=== PATIENT | female | born 1980 | race Two or more races ===

== ENCOUNTER 2020-05-14 08:38 | Outpatient (REF) | payer OTHER, MEDICAID, SELFPAY ==
--- NOTE | 2020-05-14 | MM_ITS ---
EXAMINATION: MM SCREENING DIGITAL BREAST TOMOSYNTHESIS, BILATERAL CLINICAL INFORMATION: Screening. Asymptomatic. Prior history right excisional biopsy 09/09/2012 (intraductal papilloma). Family history breast cancer paternal aunt, age 35. The lifetime risk of breast cancer based on the Tyrer-Cuzick Model is 16%. COMPARISON: Mammography: 09/23/2015, 07/12/2012 TECHNIQUE: Digital breast tomosynthesis is performed in both the craniocaudal and mediolateral oblique views along with computer-aided detection (CAD). Synthesized 2D images are generated from the tomosynthesis. FINDINGS: There are scattered areas of fibroglandular density (ACR BI-RADS breast composition Category b). There are new grouped calcifications left breast anterior/mid upper outer quadrant. Patient will be recalled for additional imaging. No abnormal calcifications on the right. The remainder of the breasts show no significant mass or architectural abnormality. The axilla and skin contours are unremarkable. MM/MM tomosynthesis screening BI IMPRESSION: 1. Left: New grouped calcifications anterior/mid upper outer left breast. 2. Right: No mammographic evidence of malignancy. ASSESSMENT: BI-RADS 0: Incomplete - Need Additional Imaging Evaluation RECOMMENDATION: 1. Additional views of the left breast (magnification CC, magnification ML). 2. Radiology department staff will contact the patient for additional imaging. This patient's information was entered into a reminder system with a target due date for their next mammogram.
== END 2020-05-14 08:39 | disposition home or self-care (01) ==
LOC: HO.MAMMO 08:38
PROVIDERS: PCP Internal Medicine; Visit Provider Internal Medicine
DX: Z12.31 Encounter for screening mammogram for malignant neoplasm of breast (principal)
CPT/HCPCS: 77063; 77067

== ENCOUNTER 2020-05-20 10:16 | Outpatient (REF) | payer OTHER, MEDICAID, SELFPAY ==
--- NOTE | 2020-05-20 | MM_ITS ---
EXAMINATION: MM DIAGNOSTIC DIGITAL MAMMOGRAPHY, LEFT CLINICAL INFORMATION: 39-year-old with new grouped calcifications anterior upper outer left breast. Prior history right excisional biopsy 2013 (intraductal papilloma). TC score is 16%. COMPARISON: Mammography: 05/14/2020, 09/23/2015 TECHNIQUE: Digital mammography is performed in the following views: Magnification CC, magnification ML x2 FINDINGS: There are scattered areas of fibroglandular density (ACR BI-RADS breast composition Category b). The magnification views confirm 8-12 new tightly grouped calcifications anterior upper left breast which vary in size and slightly vary in shape. Stereotactic sampling is recommended. Results are discussed with the patient at time of visit. MM/MM added views LT IMPRESSION: New tightly grouped calcifications upper outer quadrant left breast. ASSESSMENT: BI-RADS 4: Suspicious (subcategory 4A: Low suspicion for malignancy) RECOMMENDATION: Stereotactic sampling left breast calcifications. This patient's information was entered into a reminder system with a target due date for their next mammogram.
== END 2020-05-20 10:17 | disposition home or self-care (01) ==
LOC: HO.MAMMO 10:16
PROVIDERS: Visit Provider Internal Medicine
DX: R92.1 Mammographic calcification found on diagnostic imaging of breast (principal)
CPT/HCPCS: 77065

== ENCOUNTER → 2020-06-01 14:15 | Outpatient (BNVA) | payer OTHER, MEDICAID, SELFPAY | PROVIDERS: PCP Internal Medicine; Visit Provider Surgery | DX: Z76.89 Persons encountering health services in other specified circumstances (principal) ==

== ENCOUNTER 2020-06-02 08:02 | Outpatient (REF) | payer OTHER, MEDICAID, SELFPAY ==
--- NOTE | 2020-06-02 08:05 | MM_ITS ---
EXAMINATION: STEREOTACTIC TOMOSYNTHESIS-GUIDED VACUUM-ASSISTED BREAST BIOPSY, LEFT SPECIMEN RADIOGRAPH, LEFT POST PROCEDURE DIGITAL MAMMOGRAM, LEFT CLINICAL INFORMATION: New grouped calcifications upper outer left breast for sampling. Prior history contralateral right intraductal papilloma, status post excision 09/09/2012. Family history breast cancer paternal aunt, age 35. COMPARISON: 05/20/2020, 05/14/2020, 09/23/2015. TECHNIQUE/PROCEDURE: Informed consent was obtained from the patient after discussion of the benefits, risks, and alternatives to biopsy today. Patient appeared to understand. Gave opportunity for questions. Patient signed consent form. BIOPSY TABLE: [employer] Affirm Prone Biopsy System. LESION: Grouped calcifications anterior upper outer quadrant. LOCAL ANESTHESIA: 8 mL 1% lidocaine; 10 mL 1% lidocaine with epinephrine. DERMATOTOMY: Single skin masha dermatotomy performed. NEEDLE: [employer] 9-gauge vacuum assisted core biopsy device. APPROACH: lateral medial. TARGETING: Digital breast tomosynthesis used for targeting. CORES: 6. CLIP: [employer] Cylinder-shaped marker. SPECIMEN RADIOGRAPH: Specimen radiograph is taken in separate room using digital mammography. The index calcifications are in the excised cores. There are over 10 calcifications seen in the cores. POST PROCEDURE UNILATERAL DIGITAL MAMMOGRAM: The post biopsy mammogram is performed in separate room using separate digital mammography equipment from the biopsy procedure. CC and ML views are obtained. There are scattered areas of fibroglandular density (breast composition category: b). The clip marker is in position. The calcifications are no longer clearly seen posterior sampling. No gross hematoma. The patient tolerated the procedure well. No immediate complications. Home instructions reviewed with the patient. Final pathology results are pending. MM/MM stereotactic biopsy LT IMPRESSION: 1. Digital tomosynthesis-guided core biopsy left breast with clip placement. 2. Specimen radiograph taken and post procedure mammogram. There is satisfactory positioning of the biopsy clip. 3. Final pathology results pending. An addendum report will be issued.
== END 2020-06-02 08:03 | disposition home or self-care (01) ==
LOC: HO.MAMMO 08:02
PROVIDERS: PCP Internal Medicine; Visit Provider Surgery
DX: R92.0 Mammographic microcalcification found on diagnostic imaging of breast (principal)
CPT/HCPCS: 19081; 88305; A4648

== ENCOUNTER → 2020-06-08 14:41 | Outpatient (BNVA) | payer OTHER, MEDICAID, SELFPAY | PROVIDERS: PCP Internal Medicine; Referring Provider Internal Medicine; Visit Provider Surgery | DX: Z76.89 Persons encountering health services in other specified circumstances (principal) ==

== ENCOUNTER 2020-06-30 14:43 | Outpatient (REF) | payer OTHER, MEDICAID, SELFPAY ==
--- NOTE | 2020-06-30 14:46 | MR_ITS ---
EXAMINATION: MR BREAST WITHOUT AND WITH CONTRAST, BILATERAL CLINICAL INFORMATION: 40-year-old for high-risk screening. Nipple discharge bilaterally. History of bilateral papilloma. COMPARISON: MRI of 06/24/2012 and correlation to mammogram of 05/14/2020 TECHNIQUE: Imaging was performed with a dedicated breast coil. Prior to the administration of contrast, bilateral axial T1 and bilateral axial T2 weighted sequences were obtained. After the uneventful administration of?10 mL of Gadavist, dynamic contrast-enhanced VIBRANT series through the breasts in the axial plane were performed. Subtracted images were performed and reviewed. A delayed sagittal sequence through both breasts was acquired. Additionally, CAD post-processing, including maximum intensity projections, 3-D reconstructions and kinetic analysis, were performed an independent workstation and reviewed by the interpreting radiologist is a portion of this exam. FINDINGS: The patient's fibroglandular tissue demonstrates scattered enhancement. There is moderate background enhancement. LEFT BREAST: There are multiple foci of enhancement too numerous to count throughout the breast parenchyma. These demonstrate subthreshold and progressive-type kinetics. There is an enhancing mass in the 12 o'clock position 11.6 cm from the nipple, measuring 0.6 cm. This demonstrates plateau-type kinetics and is more pronounced than any of the other foci within the breast. It is, therefore, considered suspicious. (Axial subtracted image 37/126). There are no other areas of mass or non-mass enhancement suspicious of malignancy. There are no secondary signs of malignancy. There is no ductal enhancement. There are no additional findings on T2-weighted imaging or kinetic curve analysis. RIGHT BREAST: Similar to the contralateral breast, there are multiple foci of enhancement too numerous to count throughout the breast parenchyma. There is an oval enhancing mass measuring 0.5 cm in the retroareolar, 1 o'clock which demonstrates plateau-type kinetics. In light of the patient's history, this may represent a papilloma. (Axial subtracted image 63/126). There are no other areas of mass or non-mass enhancement suspicious of malignancy. There are no secondary signs of malignancy. There is no ductal enhancement. There are no additional findings on T2-weighted imaging or kinetic curve analysis. There is no suspicious internal mammary chain or axillary adenopathy. Limited views of the chest and abdomen are unremarkable. MR/MR breast BI wo/w con IMPRESSION: 1. Left breast with 0.6 cm enhancing mass 12 o'clock 11.6 cm from the nipple, which is suspicious. 2. Right breast mass in the retroareolar, 1 o'clock position measuring 0.5 cm which is suspicious. 3. Multiple bilateral enhancing foci too numerous to count which limits the overall sensitivity of this examination. ASSESSMENT: LEFT BREAST: BI-RADS 4: Suspicious. RIGHT BREAST: BI-RADS 4: Suspicious. RECOMMENDATIONS: 1. Focused ultrasound for the enhancing mass in the left breast at 12:00. If there is no concordant finding then an MRI guided biopsy is recommended.. 2. Focused ultrasound for the mass in the right breast retroareolar position. Ultrasound-guided biopsy should then be performed. This finding, due to its position, may not be amenable to MRI-guided biopsy. The findings were discussed with Dr. Senia Becerril at 11:55 AM on 07/01/2020
== END 2020-06-30 14:44 | disposition home or self-care (01) ==
LOC: HO.MRI 14:43
PROVIDERS: Visit Provider Surgery
DX: N64.52 Nipple discharge (principal); Z86.018 Personal history of other benign neoplasm
CPT/HCPCS: 77049; A9585

== ENCOUNTER → 2020-07-06 08:53 | Outpatient (BNVA) | payer OTHER, MEDICAID, SELFPAY | PROVIDERS: PCP Internal Medicine; Visit Provider Surgery | DX: Z76.89 Persons encountering health services in other specified circumstances (principal) ==

== ENCOUNTER 2020-07-09 07:51 | Outpatient (REF) | payer OTHER, MEDICAID, SELFPAY ==
--- NOTE | 2020-07-09 07:54 | US_ITS ---
EXAMINATION: US DIAGNOSTIC ULTRASOUND BREAST, BILATERAL CLINICAL INFORMATION: Bilateral second look ultrasound from high risk screening breast MRI 06/30/2020 noting enhancement 12:00 left breast and anterior upper right breast. Persistent right nipple discharge. History focus papilloma on left breast stereotactic biopsy 06/02/2020 (under 1 mm, completely excised). COMPARISON: MRI breasts 06/30/2020, digital breast tomosynthesis 05/14/2020, stereotactic biopsy 06/02/2020. TECHNIQUE: Ultrasound of the left breast is targeted to the area of MR concern upper breast approximately 12 cm from nipple. Ultrasound the right breast is targeted to the area of MR concern anterior superior periareolar breast. Grayscale imaging and color Doppler are performed without and with harmonics. FINDINGS: Right: There is no focal suspicious finding. There is no ultrasound correlate for the finding on MRI. Left: There is no focal suspicious finding. There is no ultrasound correlate for the finding on MRI. Results are discussed with the patient at time of visit. Result called to esthetician and manager medical spa ([facility]y) for Dr. Becerril on 07/09/2020. US/US breast RT limited IMPRESSION: Unremarkable bilateral targeted ultrasound. No ultrasound correlate for the left and right breast findings on recent MRI. ASSESSMENT: BI-RADS 1: Negative RECOMMENDATION: 1. MR report suggests bilateral tissue sampling. As there is no correlate on second look ultrasound, sampling would need to be performed under MR guidance. If MR biopsy is not contemplated, then followup MR in 6-12 months would be suggested. 2. Annual bilateral digital breast tomosynthesis. This patient's information was entered into a reminder system with a target due date for their next mammogram.
--- NOTE | 2020-07-09 07:54 | US_ITS ---
EXAMINATION: US DIAGNOSTIC ULTRASOUND BREAST, BILATERAL CLINICAL INFORMATION: Bilateral second look ultrasound from high risk screening breast MRI 06/30/2020 noting enhancement 12:00 left breast and anterior upper right breast. Persistent right nipple discharge. History focus papilloma on left breast stereotactic biopsy 06/02/2020 (under 1 mm, completely excised). COMPARISON: MRI breasts 06/30/2020, digital breast tomosynthesis 05/14/2020, stereotactic biopsy 06/02/2020. TECHNIQUE: Ultrasound of the left breast is targeted to the area of MR concern upper breast approximately 12 cm from nipple. Ultrasound the right breast is targeted to the area of MR concern anterior superior periareolar breast. Grayscale imaging and color Doppler are performed without and with harmonics. FINDINGS: Right: There is no focal suspicious finding. There is no ultrasound correlate for the finding on MRI. Left: There is no focal suspicious finding. There is no ultrasound correlate for the finding on MRI. Results are discussed with the patient at time of visit. Result called to infertility medical assistant (Carey) for Dr. Becerril on 07/09/2020. US/US breast LT limited IMPRESSION: Unremarkable bilateral targeted ultrasound. No ultrasound correlate for the left and right breast findings on recent MRI. ASSESSMENT: BI-RADS 1: Negative RECOMMENDATION: 1. MR report suggests bilateral tissue sampling. As there is no correlate on second look ultrasound, sampling would need to be performed under MR guidance. If MR biopsy is not contemplated, then followup MR in 6-12 months would be suggested. 2. Annual bilateral digital breast tomosynthesis. This patient's information was entered into a reminder system with a target due date for their next mammogram.
== END 2020-07-09 07:52 | disposition home or self-care (01) ==
LOC: HO.MAMMO 07:51
PROVIDERS: Visit Provider Surgery
DX: R92.8 Other abnormal and inconclusive findings on diagnostic imaging of breast (principal); N63.25 Unspecified lump in the left breast, overlapping quadrants; N63.12 Unspecified lump in the right breast, upper inner quadrant
CPT/HCPCS: 76642

== ENCOUNTER → 2020-07-13 11:57 | Outpatient (BNVA) | payer OTHER, MEDICAID, SELFPAY | PROVIDERS: PCP Internal Medicine; Visit Provider Surgery | DX: Z76.89 Persons encountering health services in other specified circumstances (principal) ==

== ENCOUNTER 2020-07-26 07:21 | Outpatient (REF) | payer OTHER, MEDICAID, SELFPAY ==
--- NOTE | 2020-07-26 | MM_ITS ---
EXAMINATION: MR GUIDED VACUUM-ASSISTED CORE BIOPSY BREAST, BILATERAL MM DIGITAL MAMMOGRAPHY POST BIOPSY, BILATERAL CLINICAL INFORMATION: Bloody right nipple discharge. Prior history intraductal papillomas. MRI demonstrates findings posterior upper left breast and periareolar upper right breast. Unremarkable second left ultrasound 06/30/2020. COMPARISON: MRI bilateral breasts 06/30/2020, bilateral second look ultrasound 07/09/2020, stereotactic left breast biopsy 06/02/2020, mammography 05/14/2020 and 05/20/2020. TECHNIQUE/PROCEDURE: Informed consent was obtained from the patient after discussion of the benefits, risks, and alternatives to biopsy today. Patient appeared to understand. Gave opportunity for questions. Patient signed consent form. Biopsy is performed under MRI guidance using breast surface coil. Imaging is performed without and with use of 10 mL Gadavist gadolinium contrast. [employer] introducer localization system is used with grid. LEFT BREAST: LESION: Short small linear focus of enhancement posterior upper breast. LOCAL ANESTHESIA: 7.5 mL 1% lidocaine; 10 mL 1% lidocaine with epinephrine. NEEDLE: [employer] 9-gauge vacuum assisted core biopsy device. APPROACH: Lateral medial. CORES: 11. CLIP: TriMark cylinder shaped. RIGHT BREAST: Separate new biopsy supplies used for second site. LESION: Small nodular enhancement periareolar anterior upper breast. LOCAL ANESTHESIA: 13 mL 1% lidocaine; 10 mL 1% lidocaine with epinephrine. NEEDLE: [employer] Atec 9-gauge vacuum assisted core biopsy device. APPROACH: Lateral medial. Dermatotomy: Small skin masha dermatotomy performed near areolar margin parallel with the areola. CORES: 8. CLIP: TriMark barbell/spool shaped. POSTPROCEDURE UNILATERAL DIGITAL MAMMOGRAM: Mammography is performed using digital mammography in CC and ML views. There are scattered areas of fibroglandular density (ACR BI-RADS breast composition Category b). Old clip markers are in position. No gross hematoma or an right. There is a 1.8 cm hematoma left. The patient tolerated the procedure well. Home instructions reviewed with the patient. Final pathology results are pending. MM/MM diagnostic mammo BI IMPRESSION: 1. Status post MRI guided vacuum-assisted core biopsy bilateral breast with clip placement. 2. Final pathology results pending. An addendum report will be issued.
--- NOTE | 2020-07-26 07:25 | MR_ITS ---
EXAMINATION: MR GUIDED VACUUM-ASSISTED CORE BIOPSY BREAST, BILATERAL MM DIGITAL MAMMOGRAPHY POST BIOPSY, BILATERAL CLINICAL INFORMATION: Bloody right nipple discharge. Prior history intraductal papillomas. MRI demonstrates findings posterior upper left breast and periareolar upper right breast. Unremarkable second left ultrasound 06/30/2020. COMPARISON: MRI bilateral breasts 06/30/2020, bilateral second look ultrasound 07/09/2020, stereotactic left breast biopsy 06/02/2020, mammography 05/14/2020 and 05/20/2020. TECHNIQUE/PROCEDURE: Informed consent was obtained from the patient after discussion of the benefits, risks, and alternatives to biopsy today. Patient appeared to understand. Gave opportunity for questions. Patient signed consent form. Biopsy is performed under MRI guidance using breast surface coil. Imaging is performed without and with use of 10 mL Gadavist gadolinium contrast. [employer] introducer localization system is used with grid. LEFT BREAST: LESION: Short small linear focus of enhancement posterior upper breast. LOCAL ANESTHESIA: 7.5 mL 1% lidocaine; 10 mL 1% lidocaine with epinephrine. NEEDLE: [employer] Atec 9-gauge vacuum assisted core biopsy device. APPROACH: Lateral medial. CORES: 11. CLIP: TriMark cylinder shaped. RIGHT BREAST: Separate new biopsy supplies used for second site. LESION: Small nodular enhancement periareolar anterior upper breast. LOCAL ANESTHESIA: 13 mL 1% lidocaine; 10 mL 1% lidocaine with epinephrine. NEEDLE: [employer] Atec 9-gauge vacuum assisted core biopsy device. APPROACH: Lateral medial. Dermatotomy: Small skin masha dermatotomy performed near areolar margin parallel with the areola. CORES: 8. CLIP: TriMark barbell/spool shaped. POSTPROCEDURE UNILATERAL DIGITAL MAMMOGRAM: Mammography is performed using digital mammography in CC and ML views. There are scattered areas of fibroglandular density (ACR BI-RADS breast composition Category b). Old clip markers are in position. No gross hematoma or an right. There is a 1.8 cm hematoma left. The patient tolerated the procedure well. Home instructions reviewed with the patient. Final pathology results are pending. MR/MR guided breast biopsy RT IMPRESSION: 1. Status post MRI guided vacuum-assisted core biopsy bilateral breast with clip placement. 2. Final pathology results pending. An addendum report will be issued.
--- NOTE | 2020-07-26 07:25 | MR_ITS ---
EXAMINATION: MR GUIDED VACUUM-ASSISTED CORE BIOPSY BREAST, BILATERAL MM DIGITAL MAMMOGRAPHY POST BIOPSY, BILATERAL CLINICAL INFORMATION: Bloody right nipple discharge. Prior history intraductal papillomas. MRI demonstrates findings posterior upper left breast and periareolar upper right breast. Unremarkable second left ultrasound 06/30/2020. COMPARISON: MRI bilateral breasts 06/30/2020, bilateral second look ultrasound 07/09/2020, stereotactic left breast biopsy 06/02/2020, mammography 05/14/2020 and 05/20/2020. TECHNIQUE/PROCEDURE: Informed consent was obtained from the patient after discussion of the benefits, risks, and alternatives to biopsy today. Patient appeared to understand. Gave opportunity for questions. Patient signed consent form. Biopsy is performed under MRI guidance using breast surface coil. Imaging is performed without and with use of 10 mL Gadavist gadolinium contrast. [employer] introducer localization system is used with grid. LEFT BREAST: LESION: Short small linear focus of enhancement posterior upper breast. LOCAL ANESTHESIA: 7.5 mL 1% lidocaine; 10 mL 1% lidocaine with epinephrine. NEEDLE: [employer] Atec 9-gauge vacuum assisted core biopsy device. APPROACH: Lateral medial. CORES: 11. CLIP: TriMark cylinder shaped. RIGHT BREAST: Separate new biopsy supplies used for second site. LESION: Small nodular enhancement periareolar anterior upper breast. LOCAL ANESTHESIA: 13 mL 1% lidocaine; 10 mL 1% lidocaine with epinephrine. NEEDLE: Suros Atec 9-gauge vacuum assisted core biopsy device. APPROACH: Lateral medial. Dermatotomy: Small skin masha dermatotomy performed near areolar margin parallel with the areola. CORES: 8. CLIP: TriMark barbell/spool shaped. POSTPROCEDURE UNILATERAL DIGITAL MAMMOGRAM: Mammography is performed using digital mammography in CC and ML views. There are scattered areas of fibroglandular density (ACR BI-RADS breast composition Category b). Old clip markers are in position. No gross hematoma or an right. There is a 1.8 cm hematoma left. The patient tolerated the procedure well. Home instructions reviewed with the patient. Final pathology results are pending. MR/MR guided breast biopsy LT IMPRESSION: 1. Status post MRI guided vacuum-assisted core biopsy bilateral breast with clip placement. 2. Final pathology results pending. An addendum report will be issued.
[2020-07-26] MEDS: Lidocaine HCl 1%/Epi 1:100,000 20 ML VIAL INFILTRATI (10:56)
[2020-07-26] MEDS: Lidocaine HCl 1 % MPF 5 ML VIAL SUBCUT ×4 (10:58→11:00)
== END 2020-07-26 07:22 | disposition home or self-care (01) ==
LOC: HO.MRI 07:21
PROVIDERS: Visit Provider Surgery
DX: R92.8 Other abnormal and inconclusive findings on diagnostic imaging of breast (principal)
CPT/HCPCS: 19085; 77066; 88305; 88341; 88342; A4648; A9585

== ENCOUNTER → 2020-07-29 10:46 | Outpatient (BNVA) | payer OTHER, MEDICAID, SELFPAY | PROVIDERS: PCP Internal Medicine; Visit Provider Surgery ==

== ENCOUNTER 2020-10-05 12:44 | Emergency (ER) | payer OTHER, MEDICAID, SELFPAY ==
--- NOTE | 2020-10-05 | ECG_ITS ---
Test Reason : HEART PALPITATIONS Blood Pressure : / mmHG Vent. Rate : 077 BPM Atrial Rate : 077 BPM P-R Int : 134 ms QRS Dur : 064 ms QT Int : 386 ms P-R-T Axes : 021 004 006 degrees QTc Int : 436 ms Normal sinus rhythm Normal ECG No previous ECGs available Referred By: Generic ED Physician Electronically Signed By:GIRISH AGUILAR MD
[2020-10-05 12:48] VITALS: BP 122/73; PULSE 90; RESP 18; TEMP 36.9; O2SAT 98; BMI 35.5
--- NOTE | 2020-10-05 15:12 | ED.CHESTPAIN ---
HPI - Chest Pain General Chief Complaint: Chest Pain Stated Complaint: PALPATIONS Time Seen by Provider: 10/05/20 15:12 Source: patient Mode of arrival: ambulatory Limitations: no limitations Related Data Home Medications Medication Instructions Recorded Confirmed acetaminophen 500 mg tablet 500 mg PO Q6H PRN 07/29/20 ibuprofen 200 mg tablet 200 mg PO Q6H PRN 07/29/20 Previous Rx's Medication Instructions Recorded oxycodone 5 mg tablet 5 mg PO Q4H PRN #14 tab 07/29/20 Allergies Allergy/AdvReac Type Severity Reaction Status Date / Time sulfamethoxazole Allergy Unknown rash Verified 08/09/20 16:29 levofloxacin [From Levaquin] Allergy Hives Verified 10/05/20 12:58 PMFSH Past Medical History Medical History (System 08/09/20 @ 16:29 by Naif Ascencio) History of benign breast tumor History of human papilloma virus Surgical History H/O right breast biopsy History of laparoscopic cholecystectomy Family History Family History Maternal Aunt History of breast cancer Social History Social History (System 08/09/20 @ 16:29 by Naif Ascencio) Alcohol intake: never Smoking Status: Never smoker Advance Directives: Yes Advance Directives Information Provided: No Advance Directives on File: No Physical Exam Vital Signs: Vital Signs: Last Vital Signs Temp 98.4 F 10/05/20 12:48 Pulse 90 10/05/20 12:48 Resp 18 10/05/20 12:48 BP 122/73 10/05/20 12:48 Pulse Ox 98 10/05/20 12:48 Body Mass Index 35.5 Discharge Plan Discharge Prescriptions: No Action acetaminophen [Tylenol Extra Strength] 500 mg tablet 500 mg PO Q6H PRNRF: 0 ibuprofen 200 mg tablet 200 mg PO Q6H PRNRF: 0 oxycodone 5 mg tablet 5 mg PO Q4H PRN (Reason: pain) Qty: 14 RF: 0
== END 2020-10-05 16:00 | disposition left against medical advice (07) ==
PROVIDERS: Emergency Provider Emergency Medicine; PCP Internal Medicine
DX: R00.2 Palpitations (principal)
CPT/HCPCS: 93005; 99282; 99283

== ENCOUNTER 2020-10-15 17:23 | Emergency (ER) | payer OTHER, MEDICAID, SELFPAY ==
--- NOTE | ~2020-10-15 | CT_ITS ---
EXAMINATION: CT ANGIOGRAM OF THE CHEST WITH AND WITHOUT CONTRAST (CT PULMONARY ANGIOGRAM FOR PE) CLINICAL INFORMATION: Reason for Exam elevated d dimer with cp?PE COMPARISON: Abdominal ultrasound 10/05/2017 TECHNIQUE: Prior to contrast administration, noncontrast localization images were obtained. Subsequently, multidetector volumetric imaging was performed from the thoracic inlet to below the diaphragms following the administration of 71 mL Omnipaque 350 intravenous contrast. No contrast reaction reported Sagittal, coronal, and MIP oblique sagittal reformatted images were obtained on the CT workstation, uploaded to PACS, and reviewed. This CT examination was performed using dose optimization techniques as appropriate, variously including the following: *Automated exposure control *Adjustment of mA and/or kV according to patient size (this includes techniques or standardized protocols for targeted exams where dose is matched to indication/reason for exam; i.e. extremities or head) *Use of iterative reconstruction technique Total exam dose-length product 414 mGy-cm FINDINGS: QUALITY OF STUDY/CONTRAST BOLUS: Satisfactory. PULMONARY ARTERIES: No central or segmental pulmonary emboli. THORACIC AORTA: No aneurysm or dissection. LUNG: No focal consolidation, nodules or masses. PLEURA: No pleural effusion or pneumothorax. MEDIASTINUM: Normal heart size. No pericardial effusion. No hilar or mediastinal lymphadenopathy. No evidence of septal bowing or right heart strain. CHEST WALL/AXILLA: No axillary or internal mammary lymphadenopathy. OSSEOUS STRUCTURES: No acute or suspicious osseous abnormality. UPPER ABDOMEN: Status post cholecystectomy. I suspect there is hepatic steatosis which was also present on a ultrasound previously.. An upper pole cyst is present. No reflux of contrast into the hepatic veins to suggest elevated right heart pressures. CT/CT angio chest PE protocol IMPRESSION: 1. No evidence of pulmonary emboli 2. A cause for the patient's pleuritic chest pain has not been found. VTE: negative
[2020-10-15 17:25] VITALS: BP 134/63; PULSE 72; RESP 18; TEMP 36.8; O2SAT 97; BMI 37.1
--- NOTE | 2020-10-15 18:16 | ED_ITS ---
HPI - Recheck/Abnormal Lab/Rx General Chief Complaint: Recheck/Abnormal Lab/Rx Stated Complaint: Palpitations Time Seen by Provider: 10/15/20 18:12 Source: patient Mode of arrival: ambulatory Limitations: no limitations History of Present Illness HPI narrative: Patient complaining of chest tightness for last few weeks no shortness of breath went to her doctor who did the D-dimer was slightly positive to 1.15 no leg pain family history of blood clots in mother Related Data Home Medications Medication Instructions Recorded Confirmed acetaminophen 500 mg tablet 500 mg PO Q6H PRN 07/29/20 ibuprofen 200 mg tablet 200 mg PO Q6H PRN 07/29/20 Previous Rx's Medication Instructions Recorded oxycodone 5 mg tablet 5 mg PO Q4H PRN #14 tab 07/29/20 Allergies Allergy/AdvReac Type Severity Reaction Status Date / Time sulfamethoxazole Allergy Unknown rash Verified 08/09/20 16:29 levofloxacin [From Levaquin] Allergy Hives Verified 10/05/20 12:58 Review of Systems Review of Systems: Constitutional : No Weight loss, No Fever, No Chills ENT/Mouth : No sore throat, No Rhinorrhea Eyes: No Eye Pain, No Swelling Cardiovascular :++Chest Pain, no palpitations Respiratory : No Cough, No Sputum, no shortness of breath Gastrointestinal : no Nausea, No Vomiting, No Diarrhea, No abdominal Pain, no black stools Genitourinary : No Dysuria, No Urinary Frequency Musculoskeletal : No joint pain, No Myalgias, No Joint Swelling Skin : No Skin Lesions, No rash Neuro : No Weakness, No Numbness, No Dizziness, No Headache Psych : No Anxiety/Panic, No Depression Heme/Lymph: No Bruising, No Lymphadenopathy Endocrine : No Polyuria, No Polydipsia All other systems reviewed and are negative [facility] Past Medical History Medical History History of benign breast tumor History of human papilloma virus Surgical History H/O right breast biopsy History of laparoscopic cholecystectomy Family History Family History Maternal Aunt History of breast cancer Social History Social History Alcohol intake: never Smoking Status: Never smoker Use of substances other than those prescribed or required for medical reasons: No Advance Directives: No Advance Directives Information Provided: Yes Physical Exam Vital Signs: Vital Signs: Last Vital Signs Temp 97.8 F 10/15/20 21:56 Pulse 64 10/15/20 21:56 Resp 20 10/15/20 21:56 BP 109/60 10/15/20 21:56 Pulse Ox 97 10/15/20 21:56 Body Mass Index 37.1 Appearance: Alert. Oriented X3. No acute distress. Eyes: Pupils equal, round and reactive to light. ENT: Pharynx normal. Neck: Normal inspection. Neck supple. CVS: Normal heart rate and rhythm. Pulses normal. Respiratory: No respiratory distress. Breath sounds normal. Abdomen: Soft and nontender. Bowel sounds are present, no mass palpable, no CVA tenderness Skin: Skin warm and dry. Normal skin color. Normal skin turgor. Extremities: No lower extremity edema. Neuro: Oriented X 3. No motor deficit. No sensory deficit. MDM - Recheck/Abnormal Lab/Rx MDM Narrative Medical decision making narrative: Patient likely musculoskeletal pain chest pain without any shortness of breath EKG normal acid troponin negative and CT chest also negative for PE elevated D-dimer likely inflammatory marker not from the blood clot Lab Data Attestation: I reviewed the patient's lab results. Result diagrams: 10/15/20 18:41 10/15/20 18:41 Labs: Lab Results 10/15/20 10/15/20 10/15/20 Range/Units 18:41 18:41 18:41 WBC 12.5 H (4.8-10.8) X10*3/uL RBC 4.19 L (4.20-5.50) X10*6/uL Hgb 12.7 (12.0-16.0) g/dl Hct 38.6 (37-47) % MCV 92.1 (80-98) fL MCH 30.3 (27.0-33.0) pg MCHC 32.9 (31.0-35.0) g/dl RDW 13.3 (11.0-16.0) % Plt Count 266 (160-400) X10*3/uL MPV 10.7 (9.4-12.3) fL Immature Gran % (Auto) 0.2 (0.0-0.4) % Neut % (Auto) 59.5 (45-73) % Lymph % (Auto) 29.4 (20-40) % [place] % (Auto) 6.2 (2-11) % Eos % (Auto) 4.2 H (0-4) % Baso % (Auto) 0.5 (0-2) % Lymph # (Auto) 3.7 (1.2-4.9) X10*3/uL [place] # (Auto) 0.8 (0.1-1.2) X10*3/uL Eos # (Auto) 0.5 H (0.0-0.4) X10*3/uL Baso # (Auto) 0.1 (0.0-0.2) X10*3/uL Abs Immat Gran (auto) 0.02 (0.00-0.03) X10*3/uL Absolute Neuts (auto) 7.5 (2.0-8.3) X10*3/uL Absolute Nucleated RBC 0.000 (0.0-0.012) X10*3/uL Nucleated RBC % (auto) 0.0 (0.0-0.2) /100WBC PT 12.1 (10.8-13.0) SEC INR 1.0 (0.9-1.1) Sodium 144 (135-145) mmol/L Potassium 4.4 (3.3-5.1) mmol/L Chloride 108 (96-108) mmol/L Carbon Dioxide 26 (22-29) mmol/L Anion Gap 14 (12-20) BUN 12 (9-16) mg/dL Creatinine 0.77 (0.5-1.4) mg/dL Estim Creat Clear Calc 117.3 Estimated GFR > 60 Random Glucose 104 (60-115) mg/dL Calcium 9.5 (8.4-10.2) mg/dL Total Bilirubin 0.4 (0.0-1.0) mg/dL Direct Bilirubin < 0.2 (0.0-0.5) mg/dL AST 10 (5-31) U/L ALT 12 (0-31) U/L Alkaline Phosphatase 54 (39-117) U/L Troponin I High Sens (<3.5-17.0) ng/L Total Protein 7.3 (6.5-8.0) g/dL Albumin 4.1 (3.5-5.0) g/dL 10/15/20 10/15/20 Range/Units 18:41 18:41 WBC (4.8-10.8) X10*3/uL RBC (4.20-5.50) X10*6/uL Hgb (12.0-16.0) g/dl Hct (37-47) % MCV (80-98) fL MCH (27.0-33.0) pg MCHC (31.0-35.0) g/dl RDW (11.0-16.0) % Plt Count (160-400) X10*3/uL MPV (9.4-12.3) fL Immature Gran % (Auto) (0.0-0.4) % Neut % (Auto) (45-73) % Lymph % (Auto) (20-40) % [place] % (Auto) (2-11) % Eos % (Auto) (0-4) % Baso % (Auto) (0-2) % Lymph # (Auto) (1.2-4.9) X10*3/uL [place] # (Auto) (0.1-1.2) X10*3/uL Eos # (Auto) (0.0-0.4) X10*3/uL Baso # (Auto) (0.0-0.2) X10*3/uL Abs Immat Gran (auto) (0.00-0.03) X10*3/uL Absolute Neuts (auto) (2.0-8.3) X10*3/uL Absolute Nucleated RBC (0.0-0.012) X10*3/uL Nucleated RBC % (auto) (0.0-0.2) /100WBC PT (10.8-13.0) SEC INR (0.9-1.1) Sodium (135-145) mmol/L Potassium (3.3-5.1) mmol/L Chloride (96-108) mmol/L Carbon Dioxide (22-29) mmol/L Anion Gap (12-20) BUN (9-16) mg/dL Creatinine (0.5-1.4) mg/dL Estim Creat Clear Calc Estimated GFR Random Glucose (60-115) mg/dL Calcium (8.4-10.2) mg/dL Total Bilirubin Cancelled (0.0-1.0) mg/dL Direct Bilirubin Cancelled (0.0-0.5) mg/dL AST Cancelled (5-31) U/L ALT Cancelled (0-31) U/L Alkaline Phosphatase Cancelled (39-117) U/L Troponin I High Sens < 3.5 (<3.5-17.0) ng/L Total Protein Cancelled (6.5-8.0) g/dL Albumin Cancelled (3.5-5.0) g/dL ECG Data Attestation: I personally reviewed and interpreted this ECG as follows: Interpretation: Normal sinus rhythm heart rate 60 beats per minute normal intervals normal axis no acute ischemia Discharge Plan Discharge Clinical Impression: Musculoskeletal chest pain Patient Disposition: Home, Self-Care Instructions: Chest Pain (ED) Additional Instructions: Your chest pain is likely musculoskeletal no blood clot were seen in the CT scan please follow-up with your PCP Ibuprofen for pain Prescriptions: No Action acetaminophen [Tylenol Extra Strength] 500 mg tablet 500 mg PO Q6H PRNRF: 0 ibuprofen 200 mg tablet 200 mg PO Q6H PRNRF: 0 oxycodone 5 mg tablet 5 mg PO Q4H PRN (Reason: pain) Qty: 14 RF: 0
--- NOTE | 2020-10-15 18:20 | ECG_ITS ---
Test Reason : CPRSSURE Blood Pressure : / mmHG Vent. Rate : 060 BPM Atrial Rate : 060 BPM P-R Int : 144 ms QRS Dur : 062 ms QT Int : 392 ms P-R-T Axes : 027 009 008 degrees QTc Int : 392 ms Normal sinus rhythm Normal ECG When compared with ECG of 05-OCT-2020 12:52, No significant change was found Referred By: Daron Hoang Electronically Signed By:Sean Srinivasan
[2020-10-15 18:46] LABS: MANUAL DIFF FLAG NO
[2020-10-15 18:48] LABS: Basophils Absolute Auto 0.1 X10*3/uL (0.0-0.2); Basophils Percent Auto 0.5 % (0-2); Eosinophils Absolute Auto 0.5 X10*3/uL (0.0-0.4); Eosinophils Percent Auto 4.2 % (0-4); Hematocrit 38.6 % (37-47); Hemoglobin 12.7 g/dl (12.0-16.0); Imm Gran Abs Auto 0.02 X10*3/uL (0.00-0.03); Imm Gran Pct Auto 0.2 % (0.0-0.4); Lymphocytes Absolute Auto 3.7 X10*3/uL (1.2-4.9); Lymphocytes Percent Auto 29.4 % (20-40); Mean Corpuscular HGB Conc 32.9 g/dl (31.0-35.0); Mean Corpuscular Hemoglobin 30.3 pg (27.0-33.0); Mean Corpuscular Volume 92.1 fL (80-98); Mean Platelet Volume 10.7 fL (9.4-12.3); Monocytes Absolute Auto 0.8 X10*3/uL (0.1-1.2); Monocytes Percent Auto 6.2 % (2-11); Neutrophils Absolute Auto 7.5 X10*3/uL (2.0-8.3); Neutrophils Percent Auto 59.5 % (45-73); Platelet Count 266 X10*3/uL (160-400); Red Blood Count 4.19 X10*6/uL (4.20-5.50); Red Cell Distribution Width 13.3 % (11.0-16.0); White Blood Count 12.5 X10*3/uL (4.8-10.8)
[2020-10-15 19:04] LABS: Prothrombin Time 12.1 SEC (10.8-13.0)
[2020-10-15 19:17] LABS: Alanine Aminotransferase 12 U/L (0-31); Albumin Level 4.1 g/dL (3.5-5.0); Alkaline Phosphatase 54 U/L (39-117); Anion Gap 14 (12-20); Aspartate Amino Transferase 10 U/L (5-31); Bilirubin Direct < 0.2 mg/dL (0.0-0.5); Bilirubin Total 0.4 mg/dL (0.0-1.0); Blood Urea Nitrogen 12 mg/dL (9-16); Calcium 9.5 mg/dL (8.4-10.2); Carbon Dioxide 26 mmol/L (22-29); Chloride 108 mmol/L (96-108); Creatinine Clr Calc Pharmacy 117.3; Estimated Glomerular Filt Rate > 60; Glucose Random 104 mg/dL (60-115); Potassium 4.4 mmol/L (3.3-5.1); Sodium 144 mmol/L (135-145); Total Protein 7.3 g/dL (6.5-8.0)
[2020-10-15 19:20] LABS: Troponin-I High Sensitivity < 3.5 ng/L (<3.5-17.0)
[2020-10-15 20:00] VITALS: BP 116/68; PULSE 64; RESP 16; TEMP 36.3; O2SAT 99
[2020-10-15] MEDS: iohexoL 350 MG/ML 100 ML INFUS..BTL IV (20:15)
--- NOTE | 2020-10-15 21:07 | PC.NURSE ---
pt ambulated to bathroom independently with no issue, denies sob, cp. reports only lingering chest tightness, felt mostly on deep inspiration for past [address] results
[2020-10-15 21:56] VITALS: BP 109/60; PULSE 64; RESP 20; TEMP 36.6; O2SAT 97
== END 2020-10-15 22:38 | disposition home or self-care (01) ==
PROVIDERS: Emergency Provider Internal Medicine; PCP Internal Medicine
DX: R07.89 Other chest pain (principal)
CPT/HCPCS: 36415; 71275; 80048; 80076; 84484; 85025; 85610; 93005; 99284; Q9967

== ENCOUNTER 2023-02-12 11:00 | Outpatient (REF) | payer OTHER, MEDICAID, SELFPAY ==
[2023-02-12 12:02] LABS: MANUAL DIFF FLAG NO
[2023-02-12 12:08] LABS: Basophils Absolute Auto 0.1 X10*3/uL (0.0-0.2); Basophils Percent Auto 0.6 % (0-2); Eosinophils Absolute Auto 0.3 X10*3/uL (0.0-0.4); Eosinophils Percent Auto 2.6 % (0-4); Hematocrit 38.5 % (37.0-47.0); Hemoglobin 12.7 g/dl (12.0-16.0); Imm Gran Abs Auto 0.03 X10*3/uL (0.00-0.03); Imm Gran Pct Auto 0.3 % (0.0-0.4); Lymphocytes Absolute Auto 2.7 X10*3/uL (1.2-4.9); Lymphocytes Percent Auto 28.8 % (20-40); Mean Corpuscular Hemoglobin 29.5 pg (27.0-33.0); Mean Corpuscular Volume 89.5 fL (80.0-98.0); Mean Platelet Volume 10.9 fL (9.4-12.3); Monocytes Absolute Auto 0.6 X10*3/uL (0.1-1.2); Monocytes Percent Auto 6.6 % (2-11); Neutrophils Absolute Auto 5.8 x10*3/uL (2.0-8.3); Neutrophils Percent Auto 61.1 % (45-73); Platelet Count 286 X10*3/uL (160-400); Red Cell Distribution Width 12.6 % (11.0-16.0); White Blood Count 9.5 X10*3/uL (4.8-10.8)
[2023-02-12 13:13] LABS: TSH reflex Free T4 1.22 uIU/mL (0.32-4.0)
== END 2023-02-12 11:01 | disposition home or self-care (01) ==
LOC: HO.HHCL 11:00
PROVIDERS: Visit Provider Registered Nurse
DX: R00.2 Palpitations (principal)
CPT/HCPCS: 36415; 84443; 85025

== ENCOUNTER 2024-01-10 08:42 | Outpatient (REF) | payer MEDICAID, SELFPAY ==
[2024-01-10 17:26] LABS: MANUAL DIFF FLAG NO
[2024-01-10 17:48] LABS: Red Blood Count 4.18 X10*6/uL (4.20-5.50); White Blood Count 9.5 X10*3/uL (4.8-10.8)
[2024-01-10 17:49] LABS: Basophils Absolute Auto 0.1 X10*3/uL (0.0-0.2); Basophils Percent Auto 0.5 % (0-2); Eosinophils Absolute Auto 0.3 X10*3/uL (0.0-0.4); Eosinophils Percent Auto 3.3 % (0-4); Hematocrit 37.1 % (37.0-47.0); Hemoglobin 12.4 g/dl (12.0-16.0); Imm Gran Abs Auto 0.02 X10*3/uL (0.00-0.03); Imm Gran Pct Auto 0.2 % (0.0-0.4); Lymphocytes Absolute Auto 2.2 X10*3/uL (1.2-4.9); Lymphocytes Percent Auto 23.7 % (20-40); Mean Corpuscular HGB Conc 33.4 g/dl (31.0-35.0); Mean Corpuscular Hemoglobin 29.7 pg (27.0-33.0); Mean Corpuscular Volume 88.8 fL (80.0-98.0); Mean Platelet Volume 11.3 fL (9.4-12.3); Monocytes Absolute Auto 0.6 X10*3/uL (0.1-1.2); Monocytes Percent Auto 6.7 % (2-11); Neutrophils Absolute Auto 6.2 x10*3/uL (2.0-8.3); Neutrophils Percent Auto 65.6 % (45-73); Platelet Count 278 X10*3/uL (160-400); Red Cell Distribution Width 12.3 % (11.0-16.0)
[2024-01-10 18:00] LABS: Alanine Aminotransferase 12 U/L (0-31); Albumin Level 3.7 g/dL (3.5-5.0); Alkaline Phosphatase 62 U/L (39-117); Anion Gap 11 (12-20); Aspartate Amino Transferase 8 U/L (5-31); Bilirubin Total 0.4 mg/dL (0.0-1.0); Blood Urea Nitrogen 12 mg/dL (9-16); Calcium 9.5 mg/dL (8.4-10.2); Carbon Dioxide 24 mmol/L (22-29); Chloride 110 mmol/L (96-108); Cholesterol 181 mg/dL (<200); Estimated Glomerular Filt Rate > 60; Glucose Random 114 mg/dL (60-115); HDL Cholesterol 41 mg/dL (>40); LDL Cholesterol Calculated 126 mg/dL (<100); Potassium 4.2 mmol/L (3.3-5.1); Sodium 141 mmol/L (135-145); Total Protein 7.2 g/dL (6.5-8.0); Triglycerides 72 mg/dL (<150)
[2024-01-10 18:16] LABS: Vitamin D 25-OH Total 11.8 ng/mL (>30)
[2024-01-12 14:58] LABS: HCV Log PCR <1.18 NOT DETECTED Log IU/mL (NOT DETECTED); HepC Viral Load <15 NOT DETECTED IU/mL (NOT DETECTED)
== END 2024-01-10 08:43 | disposition home or self-care (01) ==
LOC: HO.HKASLDS 08:42
PROVIDERS: Visit Provider Internal Medicine
DX: Z00.00 Encounter for general adult medical examination without abnormal findings (principal); E66.01 Morbid (severe) obesity due to excess calories
CPT/HCPCS: 36415; 80053; 80061; 82306; 84443; 85025; 87522

== ENCOUNTER 2024-01-22 07:20 | Outpatient (REF) | payer MEDICAID, SELFPAY ==
--- NOTE | ~2024-01-22 | MM_ITS ---
EXAMINATION: MM SCREENING DIGITAL BREAST TOMOSYNTHESIS, BILATERAL CLINICAL INFORMATION: Screening. Asymptomatic. COMPARISON: Mammography: This study is compared with prior exams dating back to 2019. TECHNIQUE: Digital breast tomosynthesis is performed in both the craniocaudal and mediolateral oblique views along with computer-aided detection (CAD). Synthesized 2D images are generated from the tomosynthesis. FINDINGS: There are scattered areas of fibroglandular density (ACR BI-RADS breast composition Category b). There are no significant masses, abnormal calcifications, or other abnormalities. There are 2 biopsy tissue markers in the left breast. There is a single tissue marker in the right breast. MM/MM tomosynthesis screening BI IMPRESSION: No mammographic evidence of malignancy. ASSESSMENT: BI-RADS BI-RADS 2 - Benign Findings RECOMMENDATION: Routine annual mammography screening. 1 year F/U This examination should not preclude the clinical evaluation of a suspicious palpable abnormality. This patient's information was entered into a reminder system with a target due date for their next mammogram.
== END 2024-01-22 07:21 | disposition home or self-care (01) ==
LOC: HO.MAMMO 07:20
PROVIDERS: PCP Internal Medicine; Visit Provider Internal Medicine
DX: Z12.31 Encounter for screening mammogram for malignant neoplasm of breast (principal)
CPT/HCPCS: 77063; 77067

== ENCOUNTER → 2024-01-22 07:30 | Outpatient (BNV) | payer MEDICAID, SELFPAY | PROVIDERS: PCP Internal Medicine; Visit Provider Radiology Diagnostic Radiology | DX: Z12.31 Encounter for screening mammogram for malignant neoplasm of breast (principal) | CPT/HCPCS: 77063; 77067 ==

== ENCOUNTER 2024-02-18 09:51 | Emergency (ER) | payer MEDICAID, SELFPAY ==
--- NOTE | ~2024-02-18 | XR_ITS ---
EXAMINATION: XR CHEST CLINICAL INFORMATION: Right-sided chest pain COMPARISON: None available. TECHNIQUE: 2 views of the chest were obtained. FINDINGS: Large body habitus. Lungs are hypoinflated and clear. The right hemidiaphragm is mildly elevated. Trachea is midline in position. No interstitial disease, consolidation or mass. No pleural effusion or pneumothorax. Cardiac silhouette and pulmonary vessels are normal in size. The mediastinum and karma have normal contour. The visualized bones and upper abdomen are unremarkable. XR/XR chest 2V IMPRESSION: No acute cardiopulmonary abnormality.
--- NOTE | 2024-02-18 09:53 | ECG_ITS ---
Test Reason : CHEST PAIN Blood Pressure : / mmHG Vent. Rate : 072 BPM Atrial Rate : 072 BPM P-R Int : 140 ms QRS Dur : 062 ms QT Int : 382 ms P-R-T Axes : 016 -01 001 degrees QTc Int : 418 ms Normal sinus rhythm Normal ECG When compared with ECG of 15-OCT-2020 17:41, No significant change was found Referred By: Generic ED Physician Electronically Signed By:CLARISA CRAIG
[2024-02-18 10:05] VITALS: BP 145/85; PULSE 70; RESP 16; TEMP 37; O2SAT 98; BMI 40.3
[2024-02-18 10:47] LABS: MANUAL DIFF FLAG NO
[2024-02-18 10:50] LABS: Basophils Absolute Auto 0.1 X10*3/uL (0.0-0.2); Basophils Percent Auto 0.5 % (0-2); Eosinophils Absolute Auto 0.3 X10*3/uL (0.0-0.4); Hematocrit 37.3 % (37.0-47.0); Hemoglobin 12.5 g/dl (12.0-16.0); Imm Gran Abs Auto 0.03 X10*3/uL (0.00-0.03); Imm Gran Pct Auto 0.3 % (0.0-0.4); Lymphocytes Absolute Auto 2.9 X10*3/uL (1.2-4.9); Mean Corpuscular HGB Conc 33.5 g/dl (31.0-35.0); Mean Corpuscular Hemoglobin 29.8 pg (27.0-33.0); Mean Platelet Volume 10.5 fL (9.4-12.3); Monocytes Absolute Auto 0.7 X10*3/uL (0.1-1.2); Monocytes Percent Auto 6.5 % (2-11); Neutrophils Absolute Auto 6.5 x10*3/uL (2.0-8.3); Neutrophils Percent Auto 61.7 % (45-73); Platelet Count 273 X10*3/uL (160-400); Red Blood Count 4.19 X10*6/uL (4.20-5.50); White Blood Count 10.5 X10*3/uL (4.8-10.8)
[2024-02-18 10:57] LABS: INTERNATIONAL NORM RATIO 0.9 (0.9-1.1); Prothrombin Time 11.4 SEC (11.1-13.3)
[2024-02-18 10:59] LABS: D Dimer High Sensitivity 540 NG/ML
[2024-02-18 11:00] LABS: Partial Thromboplastin Time 29.1 SEC (26.0-36.8)
[2024-02-18 11:09] LABS: Anion Gap 13 (12-20); Blood Urea Nitrogen 10 mg/dL (9-16); Calcium 9.8 mg/dL (8.4-10.2); Carbon Dioxide 24 mmol/L (22-29); Chloride 111 mmol/L (96-108); Creatinine Clr Calc Pharmacy 106.6; Estimated Glomerular Filt Rate > 60; Glucose Random 123 mg/dL (60-115); Potassium 4.1 mmol/L (3.3-5.1); Sodium 144 mmol/L (135-145)
[2024-02-18 11:18] LABS: Troponin-I High Sensitivity < 2.7 ng/L (<3.5-17.0)
== END 2024-02-18 16:41 | disposition left against medical advice (07) ==
PROVIDERS: Emergency Provider Emergency Medicine; PCP Internal Medicine
DX: R07.9 Chest pain, unspecified (principal); Z53.21 Procedure and treatment not carried out due to patient leaving prior to being seen by health care provider
CPT/HCPCS: 36415; 71046; 80048; 84484; 85025; 85379; 85610; 85730; 93005; 99281; 99283

== ENCOUNTER 2024-04-21 17:28 | Outpatient (REF) | payer MEDICAID, SELFPAY | END 2024-04-21 17:29 | disposition home or self-care (01) | LOC: HO.CHCLNP 17:28 | PROVIDERS: Visit Provider Internal Medicine | DX: N30.90 Cystitis, unspecified without hematuria (principal) | CPT/HCPCS: 87086; 87147 ==

== ENCOUNTER 2024-05-13 10:04 | Outpatient (AMB) | payer OTHER, MEDICAID, SELFPAY ==
--- NOTE | 2024-05-13 10:22 | A.OFFVIS_ITS ---
Vital Signs 05/13/24 10:23 Height 5 ft 6 in Weight 245 lb 2.464 oz BMI 39.6 BP 134/72 Blood Pressure Location Rt brachial Position Sitting Pulse 66 Pulse Source Monitor Intake Visit Reasons: [employer]/ Beauzile/palpitations Allergies sulfamethoxazole Allergy (Unknown, Verified 05/13/24 10:25) rash latex Allergy (Verified 05/13/24 10:25) Rash levofloxacin [From Levaquin] Allergy (Verified 05/13/24 10:25) Hives Medication List - Last Reconciled 05/13/24 by ERIKA Rivera acetaminophen (Tylenol Extra Strength) 500 mg PO Q6H PRN ergocalciferol (vitamin D2) 1,250 mcg PO QWEEK esomeprazole magnesium 40 mg PO DAILY ibuprofen 200 mg PO Q6H PRN HPI HPI [employer]/ Beauzile/palpitations: Details: Macarena is a 43-year-old female with past medical history of asthma who was referred to Cardiology for reports of chest discomfort and heart palpitations. Today she presents for cardiology consultation. She tells me that she gets a stabbing pain in her right chest that occurs randomly and has occurred for many months. More recently it has moved over to the left side as well. This stabbing can last several minutes before resolving. She does not know of any triggers, aggravating or alleviating factors. She just waits and the pain will gradually go away. She does have shortness of breath when climbing stairs. She feels this is a newer thing for her in the recent past. Lives on the 4th floor and has to climb 3 flights which she says she used to tolerate well. Now she notices her heart pounding and shortness of breath. No shortness of breath at rest, PND, orthopnea or edema. At times she will feel her heart pounding fast when she is just sitting down, which causes her concern. No lightheadedness, presyncope, syncope, falls. She states her maternal grandfather had an enlarged heart. No other family history of heart disease. She has no personal history of hypertension, hyperlipidemia or diabetes. No history of smoking no routine alcohol use. 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. [facility] Medical History History of human papilloma virus History of benign breast tumor Surgical History H/O right breast biopsy History of laparoscopic cholecystectomy Family History Maternal Aunt History of breast cancer Mother Diabetes Son Accelerated hypertension Social History Alcohol intake: never Female Reproductive History Menstrual Age of Menarche: 9 Review of Systems Const All systems reviewed & are unremarkable except as noted in HPI and below ENT Denies dizziness Card Reports chest pain, Reports chest pain at rest, Denies chest pain with activity, Reports rapid heart rate, Denies pedal edema, Denies edema, Denies leg edema, Denies lightheadedness, Denies palpitations, Reports dyspnea, Denies dyspnea on exertion and Denies orthopnea Resp Denies cough, Reports dyspnea and Denies dyspnea on exertion GI Denies hematochezia and Denies change in stool character Musc Denies abnormal gait, Denies limited range of motion, Denies muscle cramps, Denies muscle weakness, Denies numbness, Denies radiating pain into limb, Denies stiffness and Denies tingling Neuro Denies abnormal gait, Denies dizziness, Denies numbness and Denies tingling Endo Denies palpitations Physical Exam Vital Signs: Last Vital Signs Pulse 66 05/13/24 10:23 BP 134/72 05/13/24 10:23 BMI result Body Mass Index 39.6 Const General: cooperative, healthy appearing, comfortable and no acute distress Orientation/consciousness: patient oriented x3 Neck Neck: Yes normal visual inspection Resp Effort & Inspection: normal respiratory effort Auscultation: clear to auscultation bilaterally, no crackles, no rales, no rhonchi and no wheezes Cardio Rate: regular rate Rhythm: regular rhythm Heart sounds: S1 normal heart sound present, S2 normal heart sound present, no murmurs and no rubs Neuro General: patient oriented x3 Extrem General: Yes normal to inspection, No no pedal edema and No calf tenderness Psych Appearance: grossly normal Mental Status: mental status grossly normal Speech and movement: Normal speech and movement present Office Procedures EKG Details: Today, read by me, normal sinus rhythm, low-voltage QRS, can not exclude prior anterior infarct, rate 66, QTC 402 milliseconds [id number], Complete Assessment & Plan Assessment & Plan (1) Chest discomfort: Code(s): R07.89 - Other chest pain Category: Medical Plan: Reports of atypical sounding chest discomfort. No chest discomfort brought on by exertion. She does have shortness of breath with stair climbing. Low cardiac risk profile. EKG done today shows normal sinus rhythm, low-voltage QRS which could be related to body habitus, can not exclude prior anterior infarct, rate 66. Will check an echocardiogram to assess for structural heart disease. Will check an exercise stress test to evaluate for any ischemia. Signs and symptoms of true angina reviewed with her. Emergency care if needed for concerning symptoms. Cardiology follow-up 4-6 weeks, sooner if needed. (2) Heart palpitations: Code(s): R00.2 - Palpitations Category: Medical Plan: Reported heart palpitations where her heart is beating fast when she is at rest. She also has pounding heart when climbing stairs. She has not had any presyncope, syncope, falls. EKG today showing sinus rhythm, rate 66, normal MS, QRS and QTC intervals. Echocardiogram as above. Will check a Holter monitor to assess for any arrhythmia. Plan Time spent on chart review, documentation, interview, assessment Orders: Orders CA stress test Today R00.2 - Palpitations, R07.89 - Other chest pain ECG 3 day holter monitor Today R00.2 - Palpitations, R07.89 - Other chest pain CA echo transthoracic complete Today R00.2 - Palpitations, R07.89 - Other chest pain Coding Level of Care Code New Pt Level 4 (87274) Complex EM visit Add On G2211 Diagnoses Chest discomfort R07.89 Heart palpitations R00.2 CPT Codes EKG - CPT: 60975-[id number], Complete ([id number]) Time Spent (min) 30
[2024-05-13 10:23] VITALS: BP 134/72; PULSE 66; BMI 39.6
== END 2024-05-13 10:55 | disposition home or self-care (01) ==
PROVIDERS: PCP Internal Medicine; Visit Provider Nurse Practitioner Family
DX: R07.89 Other chest pain (principal); R00.2 Palpitations
CPT/HCPCS: 93010; 99204

== ENCOUNTER → 2024-05-13 10:04 | Outpatient (BNVA) | payer MEDICAID, SELFPAY | PROVIDERS: PCP Internal Medicine; Visit Provider Nurse Practitioner Family | DX: R07.89 Other chest pain (principal); R00.2 Palpitations | CPT/HCPCS: 93005 ==

== ENCOUNTER → 2024-05-19 07:49 | Outpatient (REF) | payer OTHER, MEDICAID, SELFPAY ==
--- NOTE | 2024-05-19 07:52 | HM_ITS ---
* Total monitoring time 3 days. * Underlying rhythm is sinus with an average rate of 81/Min. * Rare supraventricular ectopy. * No significant pauses or high-grade AV blocks. * No patient markers or diary events. MTDD
== END ==
LOC: HO.CARD 07:49
PROVIDERS: PCP Internal Medicine; Visit Provider Nurse Practitioner Family
DX: R07.89 Other chest pain (principal); R00.2 Palpitations
CPT/HCPCS: 93242

== ENCOUNTER → 2024-05-19 07:52 | Outpatient (BNV) | payer OTHER, MEDICAID, SELFPAY | PROVIDERS: PCP Internal Medicine; Visit Provider Internal Medicine | DX: I47.10 Supraventricular tachycardia, unspecified (principal) | CPT/HCPCS: 93244 ==

== ENCOUNTER → 2024-06-09 08:43 | Outpatient (REF) | payer OTHER, MEDICAID, SELFPAY ==
--- NOTE | 2024-06-09 09:07 | CA_ITS ---
Transthoracic Echocardiogram Patient (Last, First, Middle): Macarena Anthony L Gender: Female Date of : 1980 Age: 43 Procedure Date: 06/09/2024 Procedure Type: Transthoracic Echocardiogram Location: OP Height: 167. cm Weight: 110.23 kg BSA: 2.17 m2 Heart Rate: 59 bpm BP: 110 / 80 mmHg Guide Plant: SARA Mcnamara MD: Maira Chambers [employer] WORK[employer] Supervisor [employer] Processing: Shayan Wild MD Symptoms: R07.89 - Other chest pain Study Quality: Fair ECG Rhythm: Bradycardia Conclusions: - Essentially normal study Findings Left Ventricle Normal left ventricular size, thickness, and systolic function. The visually estimated ejection fraction is between 60-65%. Spectral Doppler is indicative of a normal filling pattern. Right Ventricle Normal right ventricular cavity size and systolic function. Atria The left atrium is normal in size. Interatrial shunt cannot be excluded. The right atrium is normal in size. Aortic Valve The aortic valve structure and function is likely normal. There is no aortic valve stenosis. There is no aortic valve regurgitation. Mitral Valve Likely normal mitral valve structure and function. There is trace mitral valve regurgitation. There is no mitral valve stenosis. Pulmonic Valve The pulmonic valve was not well visualized. Tricuspid Valve Likely normal tricuspid valve structure and function. There is trace tricuspid valve regurgitation. The right ventricular systolic pressure is normal. The right ventricular systolic pressure is 21 mmHg. Normal right atrial pressure. There is no evidence of pulmonary hypertension. Great Vessels All visible segments of the aorta are normal in size. The pulmonary artery was not well visualized. There is no dilatation of the ascending aorta measuring 2.70 cm. Venous The inferior vena cava is normal in size and collapses greater than 50% with inspiration. Pericardium/Pleural There is no evidence of pericardial effusion. Prior Study Comparison No prior study available for comparison. Measurements 2D Linear Measurements IVSd: 0.90 0.6-0.9/0.6-1.0 cm LVIDd: 4.42 3.9-5.3/4.2-5.9 cm LVIDd Index: 2.04 2.4-3.2/2.2-3.1 cm/m2 LVIDs: 2.41 2.0-3.6 cm LVPWd: 1.07 0.7-1.1 cm LA Diam: 3.60 2.7-3.8/3.0-4.0 cm LAIDs Index: 1.66 1.5-2.3 cm/m2 LV Mass: 182.06 67-162/88-224 g LV Mass Index: 83.90 43-95/49-115 g/m2 LVOT Diam: 2.00 3.0+(-)1.3 cm 2D Systolic Function EF 4C: 66.30 >55% EF 2C: 57.90 >55% EF BiP: 61.90 >55% Mitral Valve MV Pk E: 0.78 MV PK A: 0.64 MV Decel Time: 352.00 E/A: 1.20 E'Lateral: 10.90 E'Medial: 8.81 E/E' Med: 8.80 E/E' Lat: 7.10 PHT: 103.00 MVA PHT: 2.14 Decel [place]: 2.20 Aortic Valve AoV Pk Gen: 1.47 AoV Mn Gen: 1.05 AoV VTI: 0.33 AoV Pk Grad: 9.00 Aov Mn Grad: 5.00 PHOEBE Cont.VTI: 2.36 LVOT LVOT Pk Gen: 1.23 LVOT Mn Gen: 0.74 LVOT VTI: 0.25 LVOT Pk Grad: 6.00 LVOT Mn Grad: 3.00 LVOT Diam: 2.00 LVOT Area: 3.14 Diastolic Function MV Pk E: 0.78 MV Pk A: 0.64 E/A: 1.20 E'Medial: 8.81 E/E' Med: 8.80 E' Laterial: 10.90 E/E' Lat: 7.10 Right Ventricle TAPSE (mm): 25.90 TVS' Gen: 12.50 Tricuspid Valve TR Pk Gen: 2.12 TR Pk Grad: 18.00 RA Press: 3.00 RVSP: 21.00 Great Vessels Aorta Sinus of Valsalva: 2.80 2.0-3.5 cm Ao Asc: 2.70 2.1-3.4 cm Ao Arch: 2.40 Pulmonary Valve PV Pk Gen: 0.80 Peak PV Grad: 3.00 Updated in Other Vendor System with Status of Final Shayan Wild MD electronically signed on 06/09/2024 10:00:08 AM with status of Final
--- NOTE | 2024-06-09 09:07 | CA_ITS ---
Acquisition Time: 2024-06-09 10:45:12 Total Exercise Time: 00:05:59 Test Indications: CP Medications: SEE H Protocol: ERIKA Max HR: 160 BPM 90% of Pred: 176 BPM Max BP: 142/088 mmHG Max Work Load: 7.0 METS Exercise Stress Test with exercise 5 mins 59 secs of Erika Protocol, achieving 90% MPHR, with reports of severe SOB, with no chest discomfort, without any arrythmias, with normotensive response to exercise. Without any EKG changes meeting criteria for ischemia. In recovery, breathing back to baseline. Test reviewed with Dr. Wild. Referred By: Maira Chambers Overread By: MAIRA CHAMBERS
== END ==
LOC: HO.CARD 08:43
PROVIDERS: PCP Internal Medicine; Visit Provider Nurse Practitioner Family
DX: R07.89 Other chest pain (principal); R00.2 Palpitations
CPT/HCPCS: 93017; 93306

== ENCOUNTER → 2024-06-09 09:07 | Outpatient (BNV) | payer OTHER, MEDICAID, SELFPAY | PROVIDERS: PCP Internal Medicine; Visit Provider Internal Medicine Cardiovascular Disease | DX: R07.89 Other chest pain (principal); R06.02 Shortness of breath | CPT/HCPCS: 93016; 93018; 93320; 93325; 93350 ==

== ENCOUNTER 2024-11-18 08:31 | Outpatient (REF) | payer OTHER, SELFPAY ==
--- OUTSIDE RECORDS SUMMARY | 2024-11-18 08:45 | XMS_ITS | Encounter Summary ---
Author Organization [employer] Address [address] [facility] 7t [place] [address] Care Team Providers Care Medication Care Manager Name Role Phone Francis Zamorano MD Primary Care Provider [phone] Encounter Details Date Type Department Care Team (Latest Contact Info) Description 11/17/2024 Travel Social History Tobacco Use Types Packs/Day Years Used Date Smoking Tobacco: Never Smokeless Tobacco: Never Alcohol Use Standard Drinks/Week Comments Never 0 (1 standard drink = 0.6 oz pur e alcohol) Depression Answer Date Recorded Patient Health Questionnaire-9 Score 1 01/09/2024 Patient Health Questionnaire-9 Score 1 01/09/2024 Last PHQ-9: Questionnaire Data Not on file 0 01/09/2024 Housing Stability Answer Date Recorded What is your housing situation today? I have abril navarro 11/10/[address] you li ve. Do you have problems with any of the following? None of the above 11/10/2024 Food Insecurity Answer Date Recorded Within the past 12 months, y ou worried that your food would run out before you got money to buy more: Never True 11/10/2024 Within the past 12 months,th e food you bought just didn't last and you didn't have enough money to get more: Never True 06/2025 Transportation Answer Date Recorded In the past 12 months, has l ack of transportation kept you from medical appts, meetings, work or from getting things needed for daily living? No 11/10/2024 Utilities Answer Date Recorded In the past 12 months, has t he electric, gas, oil or water company threatened to shut off services in your home? No 11/10/2024 Depression Answer Date Recorded Patient Health Questionnaire-2 Score 0 01/09/2024 Internet Access Answer Date Recorded Internet Access Q1 Yes 11/10/2024 Internet Access Q2 Not on file 11/10/2024 Comments Unknown Sex and Gender Information Value Date Recorded Sex Assigned at Female 05/01/2022 10:18 AM EDT Legal Sex Female 10:18 AM EDT Gender Identity Choose not to disclose 10:18 AM EDT Sexual Orientation Choose not to disclose 2021 10:18 AM EDT documented as of this encounter Plan of Treatment Upcoming Encounters Date Type Department Care Team (Late st Contact Info) Description 12/02/2024 10:00 AM EDT Procedure Visit [facility] MED & PEDS [address] [place] [address] Stefanie Kothari MD [address] [place] [address] 02/09/2025 2:45 PM EDT Office Visit [facility] MED & PEDS [address] [place] [address] Francis Zamorano MD 505 [place] [address] documented as of this encounter Visit Diagnoses Not on filedocumented in this encounter Additional Health Concerns Assessment Noted Time PHQ-9 Depression Total Score: 1 01/09/20 24 10:10 AM EDT documented as of this encounter Care Teams Medication Care Manager Relationship Specialty Start Date End Date Francis Zamorano MD [address] [place] [address] PCP - General Internal Medicine 08/01/13 documented as of this encounter
--- OUTSIDE RECORDS SUMMARY | 2024-11-18 08:45 | XMS_ITS | Encounter Summary ---
Author Organization [employer] [facility] Address [address] [place] [address] Care Team Providers Care Awning Frame Maker Name Role Phone Francis Zamorano MD Primary Care Provider [phone] Encounter Details Date Type Department Care Team ([facility] Contact Info) Description 05/21/2023 Abstract [facility] [address] [place], [place] [phone] Francis Zamorano MD [address] [place] [address] Social History Tobacco Use Types Packs/Day Years Used Date Smoking Tobacco: Never Smokeless Tobacco: Never Comments Unknown Sex and Gender Information Value Date Recorded Sex Assigned at Female 05/01/2022 10:18 AM EDT Legal Sex Female 10:18 AM EDT Gender Identity Choose not to disclose 10:18 AM EDT Sexual Orientation Choose not to disclose 2021 10:18 AM EDT documented as of this encounter Plan of Treatment Upcoming Encounters Date Type Department Care Team (Late Contact Info) Description 12/02/2024 10:00 AM EDT Procedure Visit [facility] MED & PEDS [address] [place] [address] Stefanie Kothari MD [address] [place] [address] 02/09/2025 2:45 PM EDT Office Visit [facility] MED & PEDS [address] [place] [address] Francis Zamorano MD [address] [place] [address] documented as of this encounter Procedures Procedure Name Priority Date/Time Associated Diagnosis Comments PAP/HPV Routine 09/14/2015 documented in this encounter Results * Pap Smear (09/14/2015) Pap Negative for intraephithelial lesion or malignancy Negative for intraephithelial lesion or malignancy, Other HPV Undetected us Historical Provider HEALTH MAINTENANCE Final Result documented in this encounter Visit Diagnoses Not on filedocumented in this encounter Care Teams Awning Frame Maker Relationship Specialty Start Date End Date Francis Zamorano MD [address] [place] [address] PCP - General Internal Medicine 08/01/13 documented as of this encounter
--- OUTSIDE RECORDS SUMMARY | 2024-11-18 08:45 | XMS_ITS | Encounter Summary ---
Author Organization [employer] Address [address] [facility] 7t [place] [address] Care Team Providers Care Boring Machine Operator Horizontal Name Role Phone Francis Zamorano MD Primary Care Provider [phone] Encounter Details Date Type Department Care Team (Late st Contact Info) Description 10/07/2024 Orders Only [facility] MED & PEDS [address] [place], [place] [phone] Francis Zamorano MD [address] [place], [place] [phone] Class 2 obesity (Primary Dx) Social History Tobacco Use Types Packs/Day Years [...] housing situation today? I have abril navarro 07/13/[address] you li ve. Do you have problems with any of the following? None of the above 07/13/2023 Food Insecurity Answer Date Recorded Within the past 12 months, y ou worried that your food would run out before you got money to buy more: Never True 07/13/2023 Within the past 12 months,th e food you bought just didn't last and you didn't have enough money to get more: Never True 06/2024 Transportation Answer Date Recorded In the past 12 months, has l ack of transportation kept you from medical appts, meetings, work or from getting things needed for daily living? No 07/13/2023 Utilities Answer Date Recorded In the past 12 months, has t he electric, gas, oil or water company threatened to shut off services in your home? No 07/13/2023 Depression Answer Date Recorded Patient Health Questionnaire-2 Score 0 01/09/2024 Comments Unknown Sex and Gender Information Value [...] Description 12/02/2024 10:00 AM EDT Procedure Visit [facility] MED & PEDS [address] [place] [address] Stefanie Kothari MD [address] [place] [address] 02/09/2025 2:45 PM EDT Office Visit [facility] MED & PEDS [address] [place] [address] Francis Zamorano MD [address] [place] [address] documented as of this encounter Visit Diagnoses Diagnosis Class 2 obesity- Primary documented in this encounter Additional Health Concerns Assessment Noted Time PHQ-9 Depression Total Score: 1 01/09/20 24 10:10 AM EDT documented as of this encounter Care Teams Boring Machine Operator Horizontal Relationship Specialty Start Date End Date Francis Zamorano MD [address] [place] [address] PCP - General Internal Medicine 08/01/13 documented as of this encounter
--- OUTSIDE RECORDS SUMMARY | 2024-11-18 08:45 | XMS_ITS | Clinical Summary ---
Author Organization [facility] Address [address] [place] [address] Care Team Providers Care Textile Converter Name Role Phone Unavailable Primary Care Provider Unavailabl e Social History Tobacco Use Types Packs/Day Years Used Date Smoking Tobacco: Never Assessed Comments Unknown Sex and Gender Information Value Date Recorded Sex Assigned at Not on file Legal Sex Female 9:15 AM EDT Gender Identity Not on file Sexual Orientation Not on file Plan of Treatment Health Maintenance Due Date Last Done Comments Breast Cancer Screening 1979 DTaP,Tdap,and Td Vaccines (1 - Tdap) 1998 Hepatitis B Vaccines (1 of 3 - 19+ 3-dose series) 1998 Cervical Cancer Screening: P ap Smear 2000 COVID-19 Vaccine (2023-2 5 season) 2024 Colorectal Cancer Screening: Colonoscopy 04/30/2024 Depression Screening 04/30/2024 HIV Screening 04/30/2024 Hepatitis C Screening 04/30/2024 Social Influencers of Health Screening 04/30/2024 Influenza Vaccine (Season Ended) 2025 HIB Vaccines Aged Out No longer eligi ble based on patient's age to complete this topic HPV Vaccines Aged Out No longer eligi ble based on patient's age to complete this topic Hepatitis A Vaccines Aged Out No long er eligible based on patient's age to complete this topic IPV Vaccines Aged Out No longer eligi ble based on patient's age to complete this topic MMR Vaccines Aged Out No longer eligi ble based on patient's age to complete this topic Meningococcal ACWY Vaccine Aged Out N o longer eligible based on patient's age to complete this topic Meningococcal B Vaccine Aged Out No l onger eligible based on patient's age to complete this topic Pneumococcal Vaccine: Pediat rics (0 to 5 Years) and At-Risk Patients (6 to 64 Years) Aged Out No longer eligible b ased on patient's age to complete this topic RSV Immunization Patients Un aleksandra 20 months Aged Out No longer eligible b ased on patient's age to complete this topic Varicella Vaccines Aged Out No longer eligible based on patient's age to complete this topic Insurance MEDICAID - [place]
--- OUTSIDE RECORDS SUMMARY | 2024-11-18 08:45 | XMS_ITS | Encounter Summary ---
Author Organization [employer] Address [address] [facility] 7[address] [place] [address] Care Team Providers Care Sorting Supervisor Name Role Phone Francis Zamorano MD Primary Care Provider [phone] Encounter Details Date Type Department Care Team ([facility] st Contact Info) Description 01/11/2024 Orders Only [facility] MED & PEDS [address] [place], [place] [phone] Francis Zamorano MD [address] [place] [address] Vitamin D deficiency (Primary Dx); Class 2 obesity Social History Tobacco Use Types Packs/Day Years [...] Upcoming Encounters Date Type Department Care Team ([facility] st Contact Info) Description 12/02/2024 10:00 AM EDT Procedure Visit [facility] MED & PEDS [address] [place] [phone] Stefanie Kothari MD [address] [place] [address] 02/09/2025 2:45 PM EDT Office Visit [facility] MED & PEDS [address] [place] [address] Francis Zamorano MD [address] [place] [address] documented as of this encounter Procedures Procedure Name Priority Date/Time Associated Diagnosis Comments D DIMER HIGH SENSITIVITY Routine 02/18/2024 10:38 AM EDT Vitamin D deficiency HIGH SENSITIVITY TROPONIN I Routine 02/18/2024 10:38 AM EDT Vitamin D deficiency CBC WITH AUTO DIFFERENTIAL Routine 02/18/2024 10:38 AM EDT Vitamin D deficiency APTT Routine 02/18/2024 10:38 AM EDT Vitamin D deficiency PROTHROMBIN TIME-INR Routine 02/18/2024 10:38 AM EDT Vitamin D deficiency BASIC METABOLIC PANEL Routine 02/18/2024 10:38 AM EDT Vitamin D deficiency documented in this encounter Results * High Sensitivity Troponin I (02/18/2024 10:38 AM EDT) TROPONIN I HIGH SENSITIVITY <2.7 <3.5 - 17.0 ng/L [facility] Comment:The Baxter high sens itivity Troponin-I results should beused in conjunction with other diagnostic information suchas ECG, clinical observations and information, and patientsymptoms to aid in the diagnosis of RI. 02/18/2024 10:3 8 AM EDT 02/18/2024 10:46 AM EDT us Generic External Data Provider LAB BLOOD ORDERAB LES Final Result [facility] [address] [place] [address] [phone] * (ABNORMAL) Basic Metabolic Panel (02/18/2024 10:38 AM EDT) Pathologist [facility] Sodium 144 135 - 145 mmol/L [facility] Potassium 4.1 3.3 - 5.1 mmol/L [facility] Chloride 111(H) 96 - 108 mmol/L [facility] Carbon Dioxide 24 22 - 29 mmol/L [facility] Anion Gap 13 12 - 20 [facility] Urea Nitrogen (BUN) 10 9 - 16 mg/dL [facility] Creatinine, Serum 0.86 0.5 - 1.4 mg/dL [facility] Creatinine Clr Calc Pharmacy 106.6 [facility] Comment:Provided height and weight: 167.64 cm,113.398 kg.eGFR (calculated from the MDRD study equation) and eCrCl(calculated from the Cockcroft-Gault equation) are based ondifferent parameters and may not yield comparable results.If eCrCl result is absurd, please check patient'sheight/weight. Estimated Glomerular Filt Rate >60 [facility] Comment:NOTE: For -Am erican individuals, multiply the result by 1.210.Chronic Kidney Disease: Estimated GFR < 60 mL/min/1.31h3Ljfvsw Kidney Disease: Estimated GFR < 15 mL/min/1.73m2 Glucose 123(H) 60 - 115 mg/dL [facility] Calcium 9.8 8.4 - 10.2 mg/dL [facility] 02/18/2024 10:3 8 AM EDT 02/18/2024 10:46 AM EDT Generic External Data Provider LAB BLOOD ORDERAB LES Final Result Performing Organization Address [facility] de Phone Number [facility] [address] [place] [phone] * D Dimer High Sensitivity (02/18/2024 10:38 AM EDT) D Dimer High Sensitivity 540 NG/ML [facility] Comment:D-DIMER HS REFERENCE RANGENote: Our assay reports D-Dimer Units (D- DU).The cut-off value for venous thromboembolic (VTE) disease is230 ng/mL. This value has a very high negative predictivevalue when the patient has a low to moderate clinicalprobability of VTE.The upper limit of normal is 243 ng/mL. 02/18/2024 10:3 8 AM EDT 02/18/2024 10:46 AM EDT Generic External Data Provider LAB BLOOD ORDERAB LES Final Result Performing Organization Address [facility] Co de Phone Number [facility] [address] [place] [phone] * Partial Thromboplastin Time, Activated (APTT) (02/18/2024 10:38 AM EDT) Partial Thromboplastin Time 29.1 26.0 - 36.8 SEC [facility] Comment:For information rega rding the monitoring of direct thrombininhibitors, please refer to Pharmacy. 02/18/2024 10:3 8 AM EDT 02/18/2024 10:46 AM EDT Generic External Data Provider LAB BLOOD ORDERAB LES Final Result Performing Organization Address [facility] Co de Phone Number [facility] [address] [place] [phone] * Prothrombin Time-INR (02/18/2024 10:38 AM EDT) Prothrombin Time 11.4 11.1 - 13.3 SEC [facility] INTERNATIONAL NORM RATIO 0.9 0.9 - 1.1 [facility] Comment:INTERNATIONAL NORMAL IZED RATIO (INR) REFERENCE RANGES Reference RangeFor patients not on anticoagulant therapy: 0.9 - 1.1INR ranges for oral anticoagulanttherapy:For prevention and treatment of venous thrombosis and pulmonary embolism: 2.0 - 3.0For acute myocardial infarction with aspirin therapy: 2.0 - 3.0For acute myocardial infarction without aspirin therapy: 3.0 - 4.0For patients with mechanical prosthetic heart valves: 2.5 - 3.5 02/18/2024 10:3 8 AM EDT 02/18/2024 10:46 AM EDT Generic External Data Provider LAB BLOOD ORDERAB LES Final Result Performing Organization Address [facility] de Phone Number [facility] [address] [place] [phone] * (ABNORMAL) CBC auto differential (02/18/2024 10:38 AM EDT) White Blood Count 10.5 4.8 - 10.8 X10*3/uL [facility] Red Blood Count 4.19(L) 4.20 - 5.50 X10*6/uL [facility] Hemoglobin 12.5 12.0 - 16.0 g/dl [facility] Hematocrit 37.3 37.0 - 47.0 % [facility] Mean Corpuscular Volume 89.0 80.0 - 98.0 fL [facility] Mean Corpuscular Hemoglobin 29.8 27.0 - 33.0 pg [facility] Mean Corpuscular HGB Conc 33.5 31.0 - 35.0 g/dl [facility] Red Cell Distribution Width 13.0 11.0 - 16.0 % [facility] Platelet Count 273 160 - 400 X10*3/uL [facility] Mean Platelet Volume 10.5 9.4 - 12.3 fL [facility] Neutrophils Percent Auto 61.7 45 - 73 % [facility] Imm Gran Pct Auto 0.3 0.0 - 0.4 % [facility] Lymphocytes Percent Auto 28.0 20 - 40 % [facility] Monocytes Percent Auto 6.5 2 - 11 % [facility] Eosinophils Percent Auto 3.0 0 - 4 % [facility] Basophils Percent Auto 0.5 0 - 2 % [facility] NRBC Pct Auto 0.0 0.0 - 0.2 /100WBC [facility] Neutrophils Absolute Auto 6.5 2.0 - 8.3 x10*3/uL [facility] Imm Gran Abs Auto 0.03 0.00 - 0.03 X10*3/uL [facility] Lymphocytes Absolute Auto 2.9 1.2 - 4.9 X10*3/uL [facility] Monocytes Absolute Auto 0.7 0.1 - 1.2 X10*3/uL [facility] Eosinophils Absolute Auto 0.3 0.0 - 0.4 X10*3/uL [facility] Basophils Absolute Auto 0.1 0.0 - 0.2 X10*3/uL [facility] NRBC Abs Auto 0.000 0.0 - 0.012 X10*3/uL [facility] 02/18/2024 10:3 8 AM EDT 02/18/2024 10:46 AM EDT us Generic External Data Provider LAB BLOOD ORDERAB LES Final Result [facility] [address] [place] [phone] [phone] documented in this encounter Visit Diagnoses Diagnosis Vitamin D deficiency- Primary Class 2 obesity documented in this encounter Additional Health Concerns Assessment Noted Time PHQ-9 Depression Total Score: 1 01/09/20 24 10:10 AM EDT documented as of this encounter Care Teams Sorting Supervisor Relationship Specialty Start Date End Date Francis Zamorano MD [address] [place] [phone] PCP - General Internal Medicine 08/01/13 documented as of this encounter
--- OUTSIDE RECORDS SUMMARY | 2024-11-18 08:45 | XMS_ITS | Encounter Summary ---
Author Organization [employer] Address [address] [place] [address] [address] [address] Care Team Providers Care Chimney Repairer Name Role Phone Francis Zamorano MD Primary Care Provider [phone] Reason for Referral * Consultation (Routine) - Closed Specialty Diagnoses / Procedures Referred By Gregg varma Referred To Contact Nutrition - Weight Diagnoses Class 2 obesity Francis Zamorano MD [address] [place] [phone] Phone: tel: fax: Referral ID Status Reason Start Date Expiration Date V isits Requested Visits Authorized [id number] Closed Specialty Services Required 05/07/2024 05/07/2025 1 1 Encounter Details Date Type Department Care Team ([facility] st Contact Info) Description 05/07/2024 Orders Only [facility] MED & PEDS [address] [place] [phone] Francis Zamorano MD [address] [place] [phone] Class 2 obesity (Primary Dx) Social History [...] Upcoming Encounters Date Type Department Care Team ([facility] st Contact Info) Description 12/02/2024 10:00 AM EDT Procedure Visit [facility] MED & PEDS [address] [place] [address] Stefanie Kothari MD [address] [place] [address] 02/09/2025 2:45 PM EDT Office Visit [facility] MED & PEDS [address] [place] [address] Francis Zamorano MD [address] [place] [address] Scheduled Referrals Name Type Priority Associated Diagnoses Order Schedule Referral to Weight Management Outpatient Referral Routine Class 2 obesity Expected: 05/07/2024 (Approximate), Expires: 05/07/2025 documented as of this encounter Visit Diagnoses Diagnosis Class 2 obesity- Primary documented in this encounter Additional Health Concerns Assessment Noted Time PHQ-9 Depression Total Score: 1 01/09/20 24 10:10 AM EDT documented as of this encounter Care Teams Chimney Repairer Relationship Specialty Start Date End Date Francis Zamorano MD [address] [place] [phone] PCP - General Internal Medicine 08/01/13 documented as of this encounter
--- OUTSIDE RECORDS SUMMARY | 2024-11-18 08:45 | XMS_ITS | Encounter Summary ---
Author Organization [employer] Address [address] [facility] [address] [place] [address] Care Team Providers Care Office Technology Instructor Name Role Phone Francis Zamorano MD Primary Care Provider [phone] Reason for Visit * Reason Comments Back Pain Dizziness Menstrual Problem Encounter Details Date Type Department Care Team ([facility] Contact Info) Description 11/17/2024 6:20 PM EDT Office Visit [facility] [address] [place] [address] Francis Zamorano MD [address] [place] [phone] Irregular menstrual bleeding (Primary Dx); Acute midline low back pain without sciatica Social History Tobacco Use Types Packs/Day Years Used Date Smoking Tobacco: Never Smokeless Tobacco: Never Tobacco Cessation:Counseling Given: Not Answered Alcohol Use Standard Drinks/Week Comments Never 0 (1 standard drink = 0.6 oz pur e alcohol) Depression Answer Date Recorded Patient Health Questionnaire-9 Score 1 01/09/2024 Patient Health Questionnaire-9 Score 1 01/09/2024 Last PHQ-9: Questionnaire Data Not on file 0 01/09/2024 Housing Stability Answer Date Recorded What is your housing situation today? I have abril ramon 11/10/[address] you li [...] AM EDT documented as of this encounter Last Filed Vital Signs Vital Sign Reading Time Taken Comments Blood Pressure 125/87 11/17/2024 5:46 PM EDT Pulse 84 11/17/2024 5:46 PM EDT Temperature 36.6 ??C (97.8 ??F) 11/17/2024 5:46 PM ED T Respiratory Rate 18 11/17/2024 5:46 PM EDT Oxygen Saturation - - Inhaled Oxygen Concentration - - Weight 109 kg (239 lb 3.2 oz) 11/17/2024 5:46 PM EDT Height 165.5 cm (5' 5.16 ) 11/17/2024 5:46 PM ED T Body Mass Index 39.61 11/17/2024 5:46 PM EDT documented in this encounter Progress Notes * Francis Zamorano MD - 11/17/2024 6:20 PM EDT SUBJECTIVE Macarena Upton is a 44 y.o. adult who presents for Back Pain, Dizziness, and Menstrual Problem. Back Pain This is a chronic problem. The pain is present in the lumbar spine. Pertinent negatives include no abdominal pain, bladder incontinence, bowel incontinence, chest pain, dysuria, fever, headaches, legpain, numbness, paresis, paresthesias, pelvic pain, perianal numbness, tingling, weakness or weightloss. Dizziness Pertinent negatives include no abdominal pain, chest pain, fever, headaches, numbness or weakness. Missed her period last month. No nausea or vomiting reported. No spotting. No fever or other constitutional symptoms Problem List[1] Allergies[2] Medications Ordered Prior to Encounter[3] Review of Systems Constitutional: Negative for fever and weight loss. Cardiovascular: Negative for chest pain. Gastrointestinal: Negative for abdominal pain and bowel incontinence. Genitourinary: Negative for bladder incontinence, dysuria and pelvic pain. Musculoskeletal: Positive for back pain. Neurological: Positive for dizziness. Negative for tingling, weakness, numbness, headaches and paresthesias. OBJECTIVE Vitals: 11/17/24 1746 BP: 125/87 BP Location: Left arm Patient Position: Sitting BP Cuff Size: Large adult Pulse: 84 Resp: 18 Temp: 97.8 ??F (36.6 ??C) TempSrc: Temporal Weight: 239 lb 3.2 oz (109 kg) Height: 5' 5.16 (1.655 m) Physical Exam Constitutional: General: Macarena is not in acute distress. Appearance: Normal appearance. Macarena is obese. Macarena is not ill-appearing, toxic-appearing or diaphoretic. Cardiovascular: Rate and Rhythm: Normal rate. Pulmonary: Effort: Pulmonary effort is normal. Abdominal: General: There is no distension. Palpations: Abdomen is soft. There is no mass. Skin: General: Skin is warm. Neurological: General: No focal deficit present. Mental Status: Macarena is alert. Assessment/Plan Assessment/Plan Diagnoses and all orders for this visit: Irregular menstrual bleeding Comments: Differential diagnosis discussed. Patient was recently started on phentermine and topiramate.??? Medication side effect. Labs ordered. Patient will be contacted with results. Orders: - POCT , urine manually resulted - CBC auto differential; Future - Comprehensive Metabolic Panel; Future - TSH W/Reflex to FT4; Future Acute midline low back pain without sciatica Comments: Conservative management. Moist heat to the area. Gentle stretching exercises. Ibuprofen as directed. Follow-up as scheduled with me. Patient is to inform the office if no improvement is noted in the next week or so. Orders: - ibuprofen 800 MG tablet; Take 1 tablet (800 mg) by mouth 3 times daily. [1] Patient Active Problem List Diagnosis Sickle cell trait (CMS/HCC) Recurrent urinary tract infection Class 2 obesity Other chest pain GERD (gastroesophageal reflux disease) Palpitations [2] Allergies Allergen Reactions Levofloxacin Hives and Other Sulfamethoxazole Latex Rash [3] Current Outpatient Medications on File Prior to Visit Medication Sig Dispense Refill benzoyl peroxide (PanOxyl Foaming Wash) 10 % external wash Apply topically 2 times daily. 227 g 3 Chlorhexidine Gluconate (Hibiclens) 4 % solution Rinse entire body with water, then wash with minimum amount necessary to cover entire body daily 236 mL 1 ergocalciferol (Vitamin D2) 1.25 MG (38461 UT) capsule TAKE 1 CAPSULE BY MOUTH ONE TIME PER WEEK 12capsule 0 esomeprazole (NexIUM) [address] capsule Take 1 capsule (40 mg) by mouth before breakfast. Do not open capsule. 30 capsule 11 loratadine (Claritin) 10 MG tablet TAKE 1 TABLET BY MOUTH EVERY DAY IN THE MORNING 90 tablet 1 phentermine 15 MG capsule TAKE 1 CAPSULE BY MOUTH EVERY MORNING BEFORE BREAKFAST 30 capsule 0 topiramate (Topamax) 25 MG tablet Take 1 tablet (25 mg) by mouth every 12 (twelve) hours. 60 [id number] No current facility-administered medications on file prior to visit. documented in this encounter Plan of Treatment Upcoming Encounters Date Type Department Care Team (Late st Contact Info) Description 12/02/2024 10:00 AM EDT Procedure Visit [facility] [address] [place] [address] Stefanie Kothari MD [address] [place] [address] 02/09/2025 2:45 PM EDT Office Visit [facility] [address] [place] [address] Francis Zamorano MD [address] [place] [address] Scheduled Orders Name Type Priority Associated Diagnoses Orde r Schedule CBC auto differential Lab Routine Irregular menstrual bleeding Expected: 11/17/2024 (Approximate), Expires: 11/17/2025 Comprehensive Metabolic Panel Lab Routine Irregular menstrual bleeding Expected: 11/17/2024 (Approximate), Expires: 11/17/2025 TSH W/Reflex to FT4 Lab Routine Irregular menstrual bleeding Expected: 11/17/2024 (Approximate), Expires: 11/17/2025 documented as of this encounter Procedures Procedure Name Priority Date/Time Associated Diagnosis Comments POCT , URINE Routine 11/17/2024 6:18 PM EDT Irregular menstrual bleeding documented in this encounter Results * POCT , urine manually resulted (11/17/2024 6:18 PM EDT) Preg Test, Ur Negative Negative, Indeterminate, None Detected, Invalid, Specimen unsatisfactory for evaluation, Weakly Positive, 2+ Urine 11/17/2024 6:18 PM EDT Francis Zamorano MD POINT OF CARE TEST ENTER/ED IT ORDERABLES Final Result documented in this encounter Visit Diagnoses Diagnosis Irregular menstrual bleeding- Primary Irregular menstrual cycle Acute midline low back pain without sciatica documented in this encounter Additional Health Concerns Assessment Noted Time PHQ-9 Depression Total Score: 1 01/09/20 24 10:10 AM EDT documented as of this encounter Care Teams Office Technology Instructor Relationship Specialty Start Date End Date Francis Zamorano MD [address] [place] [phone] PCP - General Internal Medicine 08/01/13 documented as of this encounter
--- OUTSIDE RECORDS SUMMARY | 2024-11-18 08:45 | XMS_ITS | Clinical Summary ---
Author Organization [employer] Address [address] [place] [address] 7t [place] [address] Care Team Providers Care Cabinet Maker Name Role Phone Francis Zamorano MD Primary Care Provider [phone] Allergies Active Allergy Reactions Criticality Noted Date Comments Latex Rash Low 01/09/2024 Levofloxacin Hives,Other High 01/23/2013 Sulfamethoxazole 12/01/2022 Medications loratadine (Claritin) 10 MG tabletIndicati ons:Seasonal allergies TAKE 1 TABLET BY MOUTH EVERY DAY IN THE MORNING 90 tablet 1 024 Active benzoyl peroxide (PanOxyl Foaming Wash) 10 % external washIndication s:Acne vulgaris Apply topically 2 times daily. 227 g 3 024 2024 Active esomeprazole (NexIUM) [address] capsuleIndicat ions:Abdominal cramps Take 1 capsule (40 mg) by mouth before breakfast. Do not open capsule. 30 capsule 11 024 2024 Active topiramate (Topamax) 25 MG tabletIndicati ons:Class 2 obesity Take 1 tablet (25 mg) by mouth every 12 (twelve) hours. 60 tablet 11 025 2025 Active Chlorhexidine Gluconate (Hibiclens) 4 % solution Rinse entire body with water, then wash with minimum amount necessary to cover entire body daily 236 mL 1 025 Active ergocalciferol (Vitamin D2) 1.25 MG (61890 UT) capsuleIndicat ions:Vitamin D deficiency TAKE 1 CAPSULE BY MOUTH ONE TIME PER WEEK 12 capsule 025 Active phentermine 15 MG capsuleIndicat ions:Class 2 obesity TAKE 1 CAPSULE BY MOUTH EVERY MORNING BEFORE BREAKFAST 30 capsule Active pseudoephedrin e (Sudafed) 30 MG tablet Take 1 tablet by mouth every 12 (twelve) hours. 021 Active ibuprofen 800 MG tabletIndicati ons:Acute midline low back pain without sciatica Take 1 tablet (800 mg) by mouth 3 times daily. 30 tablet 025 2024 Active famotidine (Pepcid) 20 MG tabletIndicati ons:Gastroesop hageal reflux disease, unspecified whether esophagitis present Take 1 tablet (20 mg) by mouth 2 times daily. 60 tablet 11 024 2024 Discontinued(T herapy completed) Semaglutide-We ight Management (Wegovy) 0.25 MG/0.5ML solution auto-injectorI ndications:Sev ere obesity (BMI >= 40) (CMS/HCC) INJECT ONE PEN (=0.25 MG) SUBCUTANEOUSLY ONCE A WEEK 2 mL 024 2024 Discontinued(T herapy completed) ergocalciferol (Vitamin D2) 1.25 MG (75511 UT) capsuleIndicat ions:Vitamin D deficiency TAKE 1 CAPSULE BY MOUTH ONE TIME PER WEEK 12 capsule 024 2024 Discontinued(R eorder (will not trigger notification to Pharmacy)) diclofenac (Cataflam) 50 MG tabletIndicati ons:Strain of neck muscle, initial encounter Take 1 tablet (50 mg) by mouth 3 times daily. 30 tablet 025 2024 Discontinued(T herapy completed) cyclobenzaprin e (Flexeril) 10 MG tabletIndicati ons:Strain of neck muscle, initial encounter Take 1 tablet (10 mg) by mouth 3 times daily for 10 days. 30 tablet 025 2024 Discontinued(T herapy completed) Phentermine-To piramate 3.75-23 MG capsule sustained-rele ase 24 hrIndications: Class 2 obesity 1 capsule a day 30 capsule 1 025 2024 Discontinued(C ost of medication) phentermine 15 MG capsuleIndicat ions:Class 2 obesity Take 1 capsule (15 mg) by mouth before breakfast. 30 capsule 025 2024 Discontinued(R eorder (will not trigger notification to Pharmacy)) Active Problems Problem Noted Date Diagnosed Date Other chest pain 02/19/2024 Assessment & Plan (02/19/2024 11:47 AM EDT): Clinical picture most likely GERD but patient is perimenopause and obese I decided to refer her to cardiology for further evaluation GERD (gastroesophageal reflux disease) Assessment & Plan (02/19/2024 11:46 AM EDT): I advise patient to avoid NSAIDs, spicy and acid food, I advise to eat at the same time every day, I advise to elevate the head of the bed and take medications as prescribe Palpitations 02/19/2024 Class 2 obesity 01/09/2024 Sickle cell trait 09/09/2015 Recurrent urinary tract infection 01/23/2013 Encounters Date Type Department Care Team Description 11/17/2024 6:20 PM EDT Office Visit [facility] [address] [place] [address] Franics Zamorano MD Irregular menstrual bleeding (Primary Dx); Acute midline low back pain without sciatica 11/17/2024 Travel 11/11/2024 Telephone [facility] [address] [place] [address] Francis Zamorano MD Med Refill 11/10/2024 9:15 AM EDT Office Visit [facility] [address] [place] [address] Francis Zamorano MD Gastroesophageal reflux disease, unspecified whether esophagitis present (Primary Dx); Dietary counseling; Exercise counseling; Class 2 severe obesity due to excess calories with serious comorbidity and body mass index (BMI) of 39.0 to 39.9 in adult ([facility]); Screening for colon cancer 11/10/2024 Refill [facility] [address] [place] [address] Francis Zamorano MD Vitamin D deficiency; Class 2 obesity 11/10/2024 Travel 11/09/2024 Travel 10/09/2024 Telephone [facility] [address] [place] [address] Francis Zamorano MD Error (VOID this visit) 10/07/2024 Orders Only [facility] [address] [place] [address] Francis Zamorano MD Class 2 obesity (Primary Dx) 10/06/2024 2:00 PM EDT Office Visit [facility] [address] [place] [address] Francis Zamorano MD Strain of neck muscle, initial encounter (Primary Dx); Class 2 obesity; Elevated blood pressure, situational 10/06/2024 Travel 10/06/2024 Telephone [facility] [address] [place], [place] [phone] Francis Zamorano MD Nurse Triage 09/12/2024 Population Health Risk Score [facility] () Department [address] [place] [phone] Provider, Population Health Generic from Last 3 Months Immunizations Immunization Administration Dates Next Due DTP 01/31/1984, 1,01/31/1980,1979,1979 HPV 9-Valent 05/19/2021,06/22/2020 Hep B, Unspecified 01/19/2012 Hep B, adult 01/09/2024,05/17/2023,05/27/2012 Influenza injectable quadriv alent preservative free 03/31/2019,04/22/2018 Influenza, seasonal, injecta ble, preservative free 03/19/2017 MMR 01/19/2012,09/30/1980 Tdap 01/09/2024,04/20/2010 Social History Tobacco Use Types Packs/Day Years [...] not to disclose 2021 10:18 AM EDT Last Filed Vital Signs Vital Sign Reading Time Taken Comments Blood Pressure 125/87 11/17/2024 5:46 PM EDT Pulse 84 11/17/2024 5:46 PM EDT Temperature 36.6 ??C (97.8 ??F) 11/17/2024 5:46 PM ED T Respiratory Rate 18 11/17/2024 5:46 PM EDT Oxygen Saturation 99% 11/10/2024 9:14 AM EDT Inhaled Oxygen Concentration - - Weight 109 kg (239 lb 3.2 oz) 11/17/2024 5:46 PM EDT Height 165.5 cm (5' 5.16 ) 11/17/2024 5:46 PM ED T Body Mass Index 39.61 11/17/2024 5:46 PM EDT Plan of Treatment Upcoming Encounters Date Type Department Care Team ([facility] st Contact Info) Description 12/02/2024 10:00 AM EDT Procedure Visit [facility] [address] [place] [address] Stefanie Kothari MD [address] [place] [address] 02/09/2025 2:45 PM EDT Office Visit [facility] [address] [place] [address] Francis Zamorano MD [address] [place] [address] Health Maintenance Due Date Last Done Comments CT Colonography 1979 Colonoscopy 1979 Colorectal Cancer Screening 1979 FIT DNA/Cologuard 1979 FIT 1979 FOBT 1979 HIV Screening 1979 Sigmoidoscopy 1979 Family Planning (PISQ) 1994 Pneumococcal Vaccine: Pediatrics (0 to 5 Years) and At-Risk Patients (6 to 49) Years) (1 of 2 - PCV) 1998 Cervical Cancer Screening 09/13/2020 HPV/Cotest 09/13/2020 09/14/2015 Pap Smear 09/13/2020 09/14/2015 HPV Vaccines (3 - 3-dose SCDM series) 08/11/2021 05/19/2021, 06/22/2020 COVID-19 Vaccine ( season) 2024 01/13/2022, 12/16/2021 Depression Screening 01/08/2025 01/09/2024, 01/09/20 24 Disability Screening 11/09/2025 11/09/2024 Alcohol/Substance Use Screening 11/10/2025 11/10/2024 SDOH Screening 11/10/2025 11/10/2024 Tobacco Screening 11/17/2025 11/17/2024 Mammogram 01/21/2026 01/22/2024, 05/02, 05/20/2020, Additional history exists Lipid Panel 01/09/2029 01/10/2024 Zoster Vaccines (1 of 2) 2029 DTaP/Tdap/Td Vaccines (8 - Td or Tdap) 01/08/2034 01/09/2024, 04/20/2010, 01/31/1984, Additional history exists RSV Patients and Patients Aged 60 years or older (1 - 1-dose 75+ series) 2054 Hepatitis B Vaccines Completed 01/09/2024, 05/17/2023, 05/27/2012, Additional history exists Hepatitis C Screening Completed 01/10/2024 Influenza Vaccine Completed 04/24/2024, , 04/22/2018, Additional history exists HIB Vaccines Aged Out No longer eligi [...] patient's age to complete this topic Meningococcal Vaccine Aged Out No sarah tsering eligible based on patient's age to complete this topic RSV under 20 months Aged Out No longe r eligible based on patient's age to complete this topic Rotavirus Vaccines Aged Out No longer eligible based on patient's age to complete this topic Procedures Procedure Name Priority Date/Time Associated Diagnosis Comments POCT , URINE Routine 11/17/2024 6:18 PM EDT Irregular menstrual bleeding BI MAMMOGRAM SCREENING TOMOSYNTHESIS BILATERAL Routine 01/22/2024 8:00 AM EDT Annual physical exam Encounter for screening mammogram for malignant neoplasm of breast HEPATITIS C VIRAL RNA, QUANTITATIVE, REAL-TIME PCR Routine 01/10/2024 8:50 AM EDT Annual physical exam Encounter for screening mammogram for malignant neoplasm of breast Severe obesity (BMI >= 40) ([facility]/HCC) LIPID PANEL, STANDARD Routine 01/10/2024 8:50 AM EDT Annual physical exam Encounter for screening mammogram for malignant neoplasm of breast Severe obesity (BMI >= 40) (CMS/HCC) PAP/HPV Routine 09/14/2015 from Last 3 Months or Most Recently Relevant to Health Maintenance Results * POCT , urine manually resulted (11/17/2024 6:18 PM EDT) Preg Test, Ur Negative Negative, Indeterminate, None Detected, Invalid, Specimen unsatisfactory for evaluation, Weakly Positive, 2+ Urine 11/17/2024 6:18 PM EDT us Francis Zamorano MD POINT OF CARE TEST ENTER/ED IT ORDERABLES Final Result * BI Mammogram Screening Tomosynthesis Bilateral (01/22/2024 8:00 AM EDT) Anatomical Region Laterality Modality Breast Bilateral Mammography 01/22/2024 8:00 AM EDT Narrative 02/12/2024 9:46 PM EDT ? [facility] ? [address] ?[place] [address] ? Mammography Report ? Signed ? Patient: Macarena Anthony Brook ?MR#: ?? [id number] ? : 1980 ?Acct:[id number] ? Age/Sex: 43 / F ?ADM Date: 01/22/24 ? Loc: HO.MAMMO ? Attending Dr: Francis Zamorano MD ? Ordering Physician: Francis Zamorano MD ?Results: 2 ?? Benign Findings ? Date of Service: 01/22/24 ?Follow Up: 1 Year From Orig ?? inal Mammogram ? Procedure(s): MM tomosynthesis screening BI ?? Accession Number(s): [id number] ? cc: Francis Zamorano MD ? EXAMINATION: ?? MM SCREENING DIGITAL BREAST TOMOSYNTHESIS, BILATERAL ? CLINICAL INFORMATION: ? Screening. Asymptomatic. ? COMPARISON: ?? Mammography: This study is compared with prior exams dating back to ?? 2019. ? TECHNIQUE: ?? Digital breast tomosynthesis is performed in both the craniocaudal and ?? mediolateral oblique views along with computer-aided detection (CAD). ?? Synthesized 2D images are generated from the tomosynthesis. ? FINDINGS: ?? There are scattered areas of fibroglandular density (ACR BI-RADS breast ?? composition Category b). ? There are no significant masses, abnormal calcifications, or other ?? abnormalities. ?? There are 2 biopsy tissue markers in the left breast. There is a single ?? tissue marker in the right breast. ? MM/MM tomosynthesis screening BI ?? IMPRESSION: ?? No mammographic evidence of malignancy. ? ASSESSMENT: ? BI-RADS BI-RADS 2 - Benign Findings ? RECOMMENDATION: ?? Routine annual mammography screening. ? 1 year F/U ? This examination should not preclude the clinical evaluation of a ?? suspicious palpable abnormality. ? This patient's information was entered into a reminder system with a ?? target due date for their next mammogram. ? Dictated By: ?Kelsy Bernard MD ? Signed By: ?<Electronically signed by Kelsy Bernard MD in OV> ? 02/12/242141 ? DD/ 0800 ? TD/TT: ? Life Science Technical Officer: ? Procedure Note David, Image - 02/12/2024 [place] [facility] [address] [place] [address] Mammography Report Signed Patient: Macarena Anthony LMR#: [id number] : 1980Acct:[id number] Age/Sex: 43 / FADM Date: 01/22/24 Loc: HO.MAMMO Attending Dr: Francis Zamorano MD Ordering Physician: Francis Zamorano MDResults: 2 Benign Findings Date of Service: 01/22/24Follow Up: 1 Year From [facility] Mammogram Procedure(s): MM tomosynthesis screening BI Accession Number(s): [id number] cc: Francis Zamorano MD EXAMINATION: MM SCREENING DIGITAL BREAST TOMOSYNTHESIS, BILATERAL CLINICAL INFORMATION: Screening. Asymptomatic. COMPARISON: Mammography: This study is compared with prior exams dating back to 2019. TECHNIQUE: Digital breast tomosynthesis is performed in both the craniocaudal and mediolateral oblique views along with computer-aided detection (CAD). Synthesized 2D images are generated from the tomosynthesis. FINDINGS: There are scattered areas of fibroglandular density (ACR BI-RADS breast composition Category b). There are no significant masses, abnormal calcifications, or other abnormalities. There are 2 biopsy tissue markers in the left breast. There is a single tissue marker in the right breast. MM/MM tomosynthesis screening BI IMPRESSION: No mammographic evidence of malignancy. ASSESSMENT: BI-RADS BI-RADS 2 - Benign Findings RECOMMENDATION: Routine annual mammography screening. 1 year F/U This examination should not preclude the clinical evaluation of a suspicious palpable abnormality. This patient's information was entered into a reminder system with a target due date for their next mammogram. Dictated By: Kelsy Bernard MD Signed By: <Electronically signed by Kelsy Bernard MD in OV> 02/12/242 DD/ 0800 TD/TT: Life Science Technical Officer: us Francis Zamorano MD IMG BI PROCEDURES Edited Re sult - Final * Hepatitis C Viral RNA, Quantitative, Real-Time PCR (01/10/2024 8:50 AM EDT) Hepatitis C Viral Load <15 NOT DETECTED NOT DETECTED IU/mL [facility] HCV Log PCR <1.18 NOT DETECTED NOT DETECTED Log IU/mL [facility] Comment:For additional infor isabella, please refer tohttp://education.Blipify/faq/[email or web address](This link is being provided for informational/educational purposes only.)THIS TEST WAS PERFORMED AT:[facility] [address] [id number] GARCIA MD Blood Venous blood specimen / Unknown 01/10/2024 8:50 AM EDT 01/10/2024 5:23 PM EDT us Francis Zamorano MD LAB BLOOD ORDERABLES Final Result [facility] [address] [place] [phone] * (ABNORMAL) Lipid Panel, Standard (01/10/2024 8:50 AM EDT) Pathologist [facility] Triglycerides 72 <150 mg/dL [facility] Comment:Desirable Triglyceri de: less than 150 mg/dLBorderline High Triglyceride 150-199 mg/dLHigh Triglyceride: 200-499 mg/dLVery High Triglyceride: greater than or equal to 5OO mg/dL Cholesterol 181 <200 mg/dL [facility] Comment:Desirable Cholestero l: less than 200 mg/dLBorderline High Cholesterol: 200-239 mg/dLHigh Cholesterol: greater than 239 mg/dL LDL Cholesterol Calculated 126(H) <100 mg/dL [facility] Comment:Desirable LDL: less than 100 mg/dLNear Optimal/Above Optimal LDL: 110- 129 mg/dLBorderline High LDL: 130-159 mg/dLHigh LDL: 160-189 mg/dLVery High LDL: greater than or equal to 190 mg/dL HDL Cholesterol 41 >40 mg/dL [facility] Comment:Desirable HDL: great er than 40 mg/dL Note: This HDL assay may give artificially low results in patients with liver disease. Blood Venous blood specimen / Unknown 01/10/2024 8:50 AM EDT 01/10/2024 5:23 PM EDT Francis Zamorano MD LAB BLOOD ORDERABLES Final Result [facility] [address] [place] [address] [phone] * Pap Smear (09/14/2015) Pap Negative for intraephithelial lesion or malignancy Negative for intraephithelial lesion or malignancy, Other HPV Undetected Historical Provider HEALTH MAINTENANCE Final Result from Last 3 Months or Most Recently Relevant to Health Maintenance Insurance [place] [address] [employer] Care Teams Cabinet Maker Relationship Specialty Start Date End Date Francis Zamorano MD [address] [place] [phone] PCP - General Internal Medicine 08/01/13
[2024-11-18 18:11] LABS: MANUAL DIFF FLAG NO
[2024-11-18 18:28] LABS: Basophils Percent Auto 0.4 % (0-2); Eosinophils Absolute Auto 0.2 X10*3/uL (0.0-0.4); Eosinophils Percent Auto 2.4 % (0-4); Hematocrit 38.4 % (37.0-47.0); Hemoglobin 12.6 g/dl (12.0-16.0); Imm Gran Abs Auto 0.02 X10*3/uL (0.00-0.03); Imm Gran Pct Auto 0.2 % (0.0-0.4); Lymphocytes Absolute Auto 2.6 X10*3/uL (1.2-4.9); Lymphocytes Percent Auto 26.8 % (20-40); Mean Corpuscular HGB Conc 32.8 g/dl (31.0-35.0); Mean Corpuscular Hemoglobin 29.6 pg (27.0-33.0); Mean Corpuscular Volume 90.4 fL (80.0-98.0); Mean Platelet Volume 11.7 fL (9.4-12.3); Monocytes Absolute Auto 0.6 X10*3/uL (0.1-1.2); Monocytes Percent Auto 6.2 % (2-11); Neutrophils Absolute Auto 6.3 x10*3/uL (2.0-8.3); Platelet Count 294 X10*3/uL (160-400); Red Blood Count 4.25 X10*6/uL (4.20-5.50); Red Cell Distribution Width 13.3 % (11.0-16.0); White Blood Count 9.8 X10*3/uL (4.8-10.8)
[2024-11-18 18:48] LABS: Alanine Aminotransferase 23 U/L (0-31); Albumin Level 3.7 g/dL (3.5-5.0); Alkaline Phosphatase 72 U/L (39-117); Anion Gap 12 (12-20); Aspartate Amino Transferase 21 U/L (5-31); Bilirubin Total 0.5 mg/dL (0.0-1.0); Blood Urea Nitrogen 9 mg/dL (9-16); Calcium 9.1 mg/dL (8.4-10.2); Carbon Dioxide 22 mmol/L (22-29); Chloride 110 mmol/L (96-108); Estimated Glomerular Filt Rate > 60; Glucose Random 96 mg/dL (60-115); Potassium 3.8 mmol/L (3.3-5.1); Sodium 140 mmol/L (135-145); Total Protein 7.2 g/dL (6.5-8.0)
[2024-11-18 18:55] LABS: TSH reflex Free T4 1.63 uIU/mL (0.32-4.0)
== END 2024-11-18 08:32 | disposition home or self-care (01) ==
LOC: HO.HKASLDS 08:31
PROVIDERS: Visit Provider Internal Medicine
DX: N92.6 Irregular menstruation, unspecified (principal)
CPT/HCPCS: 36415; 80053; 84443; 85025

== ENCOUNTER → 2025-02-13 11:30 | Outpatient (BNV) | payer OTHER, SELFPAY | PROVIDERS: PCP Internal Medicine; Visit Provider Radiology Body Imaging | DX: Z12.31 Encounter for screening mammogram for malignant neoplasm of breast (principal) | CPT/HCPCS: 77063; 77067 ==

== ENCOUNTER 2025-02-13 11:33 | Outpatient (REF) | payer OTHER, SELFPAY ==
--- NOTE | ~2025-02-13 | MM_ITS ---
EXAMINATION: MM SCREENING DIGITAL BREAST TOMOSYNTHESIS, BILATERAL CLINICAL INFORMATION: Screening. Asymptomatic. COMPARISON: Comparison made to multiple prior, most recent January 22, 2024, and most remote September 23, 2015. TECHNIQUE: Digital breast tomosynthesis is performed in both the craniocaudal and mediolateral oblique views along with computer-aided detection (CAD). FINDINGS: BREAST COMPOSITION: There are scattered areas of fibroglandular density (ACR BI-RADS breast composition Category b). RIGHT BREAST: Tissue marker from previous needle core biopsy. No significant masses, suspicious calcifications or other abnormalities are seen. LEFT BREAST: Tissue marker from previous needle core biopsy. No significant masses, suspicious calcifications or other abnormalities are seen. MM/MM tomosynthesis screening BI IMPRESSION: BILATERAL BREASTS: Benign, no mammographic evidence of malignancy. Normal interval follow-up is recommended in 12 months. ASSESSMENT: BI-RADS 2 - Benign Findings RECOMMENDATION: Routine annual mammography screening. FOLLOW-UP: 1 year F/U This examination should not preclude the clinical evaluation of a suspicious palpable abnormality. This patient's information was entered into a reminder system with a target due date for their next mammogram. Electronically signed by: Sean Fournier MD 02/17/2025 01:40 PM EDT
--- OUTSIDE RECORDS SUMMARY | 2025-02-13 11:35 | XMS_ITS | Encounter Summary ---
Author Organization [employer] Address [address] [facility] [address] [place] [address] Care Team Providers Care Traffic Manager Name Role Phone Francis Zamorano MD Primary Care Provider [phone] Reason for Visit * Reason Onset Date Comments Med Refill 12/10/2024 Encounter Details Date Type Department Care Team ([facility] st Contact Info) Description 12/10/2024 Refill [facility] [address] [place] [address] Francis Zamorano MD [address] [place] [address] Class 2 obesity Social History Tobacco Use [...] Upcoming Encounters Date Type Department Care Team ([facility] st Contact Info) Description 02/16/2025 11:00 AM EDT Office Visit [facility] [address] [place] [address] Karena Noel FNP [address] [place] [address] documented as of this encounter Visit Diagnoses Diagnosis Class 2 obesity documented in this encounter Additional Health Concerns Assessment Noted Time PHQ-9 Depression Total Score: 1 01/09/20 24 10:10 AM EDT documented as of this encounter Care Teams Traffic Manager Relationship Specialty Start Date End Date Francis Zamorano MD [address] [place] [address] PCP - General Internal Medicine 08/01/13 documented as of this encounter
== END 2025-02-13 11:34 | disposition home or self-care (01) ==
LOC: HO.MAMMO 11:33
PROVIDERS: PCP Internal Medicine; Visit Provider Internal Medicine
DX: Z12.31 Encounter for screening mammogram for malignant neoplasm of breast (principal)
CPT/HCPCS: 77063; 77067

== ENCOUNTER 2025-04-20 10:03 | Outpatient (REF) | payer OTHER, SELFPAY ==
[2025-04-20 13:09] LABS: MANUAL DIFF FLAG NO
[2025-04-20 13:13] LABS: Hematocrit 35.5 % (37.0-47.0); Hemoglobin 11.8 g/dl (12.0-16.0); Imm Gran Abs Auto 0.01 X10*3/uL (0.00-0.03); Imm Gran Pct Auto 0.1 % (0.0-0.4); Lymphocytes Absolute Auto 2.6 X10*3/uL (1.2-4.9); Mean Corpuscular HGB Conc 33.2 g/dl (31.0-35.0); Mean Corpuscular Hemoglobin 30.3 pg (27.0-33.0); Mean Corpuscular Volume 91.3 fL (80.0-98.0); NRBC Abs Auto 0.000 X10*3/uL (0.0-0.012); NRBC Pct Auto 0.0 /100WBC (0.0-0.2); Platelet Count 311 X10*3/uL (160-400); Red Blood Count 3.89 X10*6/uL (4.20-5.50); White Blood Count 9.2 X10*3/uL (4.8-10.8)
[2025-05-02 02:53] LABS: IgE Antibody (Anti-IgE IgG) 10 ng/mL (<168)
== END 2025-04-20 10:04 | disposition home or self-care (01) ==
LOC: HO.HKASLDS 10:03
PROVIDERS: PCP Internal Medicine; Visit Provider Internal Medicine
DX: J30.5 Allergic rhinitis due to food (principal)
CPT/HCPCS: 36415; 83520; 85025